=== PATIENT | female | born 1975 | race Caucasian/White ===

== ENCOUNTER 2017-10-15 23:17 | Emergency (ER) | payer MEDICAID ==
[~2017-10-15] VITALS: Ht 167.6 cm; Wt 99.8 kg
[2017-10-15 23:34] VITALS: BP 161/108
[2017-10-15] MEDS ORDERED: Ketorolac 30mg Inj IV ONE (23:45)
--- NOTE | 2017-10-15 23:51 | Emergency Room Report ---
History of Present Illness General Chief Complaint: Headache Source: Patient Present Illness HPI 42-year-old female p/w HARVEY for 1 days. Patient describes HARVEY as gradual in onset, throbbing in nature, localized to back of head, non-radiating, constant, 5 out of 10 in severity. + photophobia, phonophobia. Some nausea and vomiting today Patient has a history of headaches and states this HARVEY feels similar to previous episodes. States that he has been getting worse for the last 3 months. Denies fever, chills, neck pain, blurry vision, motor/sensory weakness. Patient also states that she has a history of hypertension only during , her last was 2 years ago, patient has not seen a doctor since she gave and is not on anti-hypertension medication Allergies: Coded Allergies: CIPROFLOXACIN (Verified Allergy, Mild, Itching, 10/15/17) nausea SULFAMETHOXAZOLE (Verified Allergy, Mild, 10/15/17) nausea TRIMETHOPRIM (Verified Allergy, Mild, 10/15/17) nausea Patient History Past Medical History: see triage record Past Surgical History: none Pertinent Family History: none Last Menstrual Period: 09/25/17 Now: No : 4 Para: 2 Reviewed Nursing Documentation: PMH: Agreed; PSxH: Agreed Nursing Documentation-PMH Past Medical History: No Stated History Review of Systems All Other Systems: negative except mentioned in HPI Physical Exam Vital Signs Date Time Temp Pulse Resp B/P (MAP) Pulse Ox O2 Delivery O2 Flow Rate FiO2 10/15/17 23:19 98.5 99 14 161/108 97 Room Air 98.4 Sp02 EP Interpretation: reviewed, normal General Appearance: alert, GCS 15, non-toxic, mild distress Head: normocephalic, atraumatic Eyes: bilateral eye normal inspection, bilateral eye PERRL, bilateral eye EOMI ENT: normal ENT inspection, normal pharynx, normal voice, moist mucus membranes Neck: normal inspection, full range of motion, supple, no meningismus, no bony tend Respiratory: normal inspection, lungs clear, normal breath sounds, no respiratory distress, no retraction, no wheezing, speaking full sentences, chest symmetrical Cardiovascular #1: normal inspection, regular rate, rhythm, no edema, normal capillary refill Cardiovascular #2: 2+ radial (R), 2+ radial (L) Gastrointestinal: normal inspection, non tender, soft, non-distended, no guarding Musculoskeletal: normal inspection, back normal, normal range of motion, non- tender Neurologic: normal inspection, alert, oriented x3, responsive, stick inserter III-XII nml as tested, motor strength/tone normal, sensory intact, normal gait, speech normal Psychiatric: normal inspection, judgement/insight normal, memory normal Skin: normal inspection, normal color, no rash, warm/dry, well hydrated, normal turgor Medical Decision Making Diagnostic Impression: Primary Impression: Headache Additional Impression: High blood pressure ER Course 42-year-old female with headache DDX: Hypertensive urgency versus Primary HARVEY such as migraine, tension HARVEY, cluster. vs. dehydration Other serious diagnoses on differential such as intracranial bleed/sah, meningitis/encephalitis, tumor, however patients H&P is more consistent with benign etiology at this time. There are no neurological signs/symptoms/findings on physical exam and patient appears nontoxic. Plan: Pain control with Toradol, IV fluids, Zofran ER course: Patient feels much better with meds. Patient continues to appear nontoxic, aox3, no neurologic symptoms. Disposition: Patient will be discharged to home. Patient instructed to follow up with primary care doctor within 5 days. Told that she also needs to follow up with her primary care doctor to be treated for her high blood pressure. Patient also instructed to follow up with a neurologist within 1 week. Strict return precautions discussed with patient such as severe/worsening headache, nausea, vomiting, fever chills, neck pain. Patient verbalized understanding. Please note that this Emergency Department Report was dictated using [employer] turning lathe tender technology software, occasionally this can lead to erroneous entry secondary to interpretation by the dictation equipment. EKG Diagnostic Results EP Interpretation: Yes Rate: normal Rhythm: NSR ST Segments: No acute changes ASA given to patient: No Laboratory Tests Test 10/16/17 00:10 White Blood Count 6.6 K/UL (4.8-10.8) Red Blood Count 4.69 M/UL (4.20-5.40) Hemoglobin 11.0 G/DL (12.0-16.0) L Hematocrit 33.8 % (37.0-47.0) L Mean Corpuscular Volume 72 FL (80-99) L Mean Corpuscular Hemoglobin 23.4 PG (27.0-31.0) L Mean Corpuscular Hemoglobin Concent 32.5 G/DL (32.0-36.0) Red Cell Distribution Width 13.5 % (11.6-14.8) Platelet Count 204 K/UL (150-450) Mean Platelet Volume 7.3 FL (6.5-10.1) Neutrophils (%) (Auto) 53.0 % (45.0-75.0) Lymphocytes (%) (Auto) 33.4 % (20.0-45.0) Monocytes (%) (Auto) 6.9 % (1.0-10.0) Eosinophils (%) (Auto) 5.2 % (0.0-3.0) H Basophils (%) (Auto) 1.5 % (0.0-2.0) Urine Color Yellow Urine Appearance Clear Urine pH 5 (4.5-8.0) Urine Specific [place] 1.030 (1.005-1.035) Urine Protein 1+ (NEGATIVE) H Urine Glucose (UA) Negative (NEGATIVE) Urine Ketones 1+ (NEGATIVE) H Urine Occult Blood 1+ (NEGATIVE) H Urine Nitrite Negative (NEGATIVE) Urine Bilirubin Negative (NEGATIVE) Urine Urobilinogen Normal MG/DL (0.0-1.0) Urine Leukocyte Esterase 1+ (NEGATIVE) H Urine RBC 2-4 /HPF (0 - 2) H Urine WBC 5-10 /HPF (0 - 2) H Urine Squamous Epithelial Cells Many /LPF (NONE/OCC) H Urine Calcium Oxalate Crystals Many /LPF (NONE) Urine Bacteria Moderate /HPF (NONE) H Urine HCG, Qualitative Negative (NEGATIVE) Sodium Level 139 MMOL/L (136-145) Potassium Level 4.0 MMOL/L (3.5-5.1) Chloride Level 104 MMOL/L (98-107) Carbon Dioxide Level 26 MMOL/L (21-32) Anion Gap 9 mmol/L (5-15) Blood Urea Nitrogen 22 mg/dL (7-18) H Creatinine 0.9 MG/DL (0.55-1.30) Estimate Glomerular Filtration Rate > 60 mL/min (>60) Glucose Level 125 MG/DL (74-106) H Calcium Level 8.5 MG/DL (8.5-10.1) Total Bilirubin 0.4 MG/DL (0.2-1.0) Aspartate Amino Transferase (AST) 25 U/L (15-37) Alanine Aminotransferase (ALT) 29 U/L (12-78) Alkaline Phosphatase 67 U/L (46-116) Total Protein 7.2 G/DL (6.4-8.2) Albumin 3.8 G/DL (3.4-5.0) Globulin 3.4 g/dL Albumin/Globulin Ratio 1.1 (1.0-2.7) Last Vital Signs Date Time Temp Pulse Resp B/P (MAP) Pulse Ox O2 Delivery O2 Flow Rate FiO2 10/15/17 23:34 98.4 14 161/108 97 Room Air 98.4 10/15/17 23:19 99 Disposition: HOME, SELF-CARE Condition: Improved Scripts No Active Prescriptions or Reported Meds Luci Torres M.D. Oct 15, 2017 23:51
[2017-10-16 00:14] LABS: BASOPHILS % (AUTO) 1.5 % (0.0-2.0); EOSINOPHILS % (AUTO) 5.2 % (0.0-3.0); HEMATOCRIT 33.8 % (37.0-47.0); LYMPHOCYTES % (AUTO) 33.4 % (20.0-45.0); MEAN CORPUSCULAR VOLUME 72 FL (80-99); MONOCYTES % (AUTO) 6.9 % (1.0-10.0); PLATELET COUNT 204 K/UL (150-450); RED BLOOD COUNT 4.69 M/UL (4.20-5.40); RED CELL DISTRIBUTION WIDTH 13.5 % (11.6-14.8); WHITE BLOOD COUNT 6.6 K/UL (4.8-10.8)
[2017-10-16 00:20] LABS: APPEARANCE,URINE CLEAR; BILIRUBIN, URINE NEGATIVE (NEGATIVE); GLUCOSE, URINE (UA) NEGATIVE (NEGATIVE); KETONES,URINE 1+ (NEGATIVE); LEUKOCYTE ESTERASE ,URINE 1+ (NEGATIVE); NITRITE,URINE NEGATIVE (NEGATIVE); PH,URINE 5 (4.5-8.0); PROTEIN,URINE 1+ (NEGATIVE); UROBILINOGEN,URINE NORMAL MG/DL (0.0-1.0)
[2017-10-16 00:27] LABS: ANION GAP 9 mmol/L (5-15); BLOOD UREA NITROGEN 22 mg/dL (7-18); CALCIUM 8.5 MG/DL (8.5-10.1); CARBON DIOXIDE 26 MMOL/L (21-32); CHLORIDE 104 MMOL/L (98-107); CREATININE 0.9 MG/DL (0.55-1.30); SODIUM 139 MMOL/L (136-145)
[2017-10-16 00:28] LABS: COLOR,URINE YELLOW
[2017-10-16 00:31] LABS: ALANINE AMINOTRANSFERASE 29 U/L (12-78); ALBUMIN 3.8 G/DL (3.4-5.0); ALBUMIN/GLOBULIN RATIO 1.1 (1.0-2.7); ALKALINE PHOSPHATASE 67 U/L (46-116); ASPARTATE AMINO TRANSFERASE 25 U/L (15-37); BILIRUBIN,TOTAL 0.4 MG/DL (0.2-1.0)
[2017-10-16 03:21] VITALS: BP 148/91
[2017-10-16 03:23] VITALS: BP 148/91
--- NOTE | 2017-10-17 18:13 | Cardiology Report ---
APPROVED REPORT EKG Measurement Heart [id number] [id number] Normal sinus rhythm Possible Left atrial enlargement Abnormal ECG
== END 2017-10-16 03:24 | disposition home or self-care (01) ==
LOC: EMR 23:52
DX: R51 Headache (principal); R03.0 Elevated blood-pressure reading, without diagnosis of hypertension; Z88.2 Allergy status to sulfonamides; Z88.1 Allergy status to other antibiotic agents
CPT/HCPCS: 36415; 80053; 81003; 81025; 85025; 87086; 93005; 96374; 96375; 99284; J1885; J2405

== ENCOUNTER 2018-04-18 09:26 | Emergency (ER) | payer MEDICAID ==
[~2018-04-18] VITALS: Ht 167.6 cm; Wt 99.8 kg
[2018-04-18 10:12] LABS: APPEARANCE,URINE SLIGHTLY CLOUDY; BILIRUBIN, URINE NEGATIVE (NEGATIVE); GLUCOSE, URINE (UA) NEGATIVE (NEGATIVE); KETONES,URINE 4+ (NEGATIVE); LEUKOCYTE ESTERASE ,URINE 3+ (NEGATIVE); NITRITE,URINE NEGATIVE (NEGATIVE); PH,URINE 6 (4.5-8.0); PROTEIN,URINE 2+ (NEGATIVE); UROBILINOGEN,URINE 1 MG/DL (0.0-1.0)
[2018-04-18 10:25] LABS: COLOR,URINE YELLOW
[2018-04-18 10:29] LABS: BASOPHILS % (AUTO) 0.8 % (0.0-2.0); EOSINOPHILS % (AUTO) 2.5 % (0.0-3.0); HEMATOCRIT 45.6 % (37.0-47.0); HEMOGLOBIN 14.2 G/DL (12.0-16.0); LYMPHOCYTES % (AUTO) 20.2 % (20.0-45.0); MEAN CORPUSCULAR VOLUME 74 FL (80-99); MONOCYTES % (AUTO) 6.3 % (1.0-10.0); NEUTROPHILS % (AUTO) 70.2 % (45.0-75.0); PLATELET COUNT 195 K/UL (150-450); RED BLOOD COUNT 6.15 M/UL (4.20-5.40)
[2018-04-18 10:37] LABS: ANION GAP 13 mmol/L (5-15); BLOOD UREA NITROGEN 12 mg/dL (7-18); CALCIUM 9.4 MG/DL (8.5-10.1); CARBON DIOXIDE 23 MMOL/L (21-32); CHLORIDE 101 MMOL/L (98-107); CREATININE 0.8 MG/DL (0.55-1.30); POTASSIUM 3.4 MMOL/L (3.5-5.1); SODIUM 137 MMOL/L (136-145)
--- NOTE | 2018-04-18 10:38 | Emergency Room Report ---
History of Present Illness General Chief Complaint: Complications Source: Patient Present Illness HPI 42-year-old female presents ED for evaluation. Patient states she is possibly 6 weeks . Is been having severe nausea for the last few days. Denies abdominal pain. Denies dysuria. Denies any spotting. States that her blood pressure has also been high. BP in triage 163/123. Denies dizziness or headache. States that she was prescribed labetalol prior to but states it is not helping. States that with previous labetalol did control her blood pressure. No history of preeclampsia or eclampsia. No alcohol or drug use. No other aggravating relieving factors. Denies any other associated symptoms Allergies: Coded Allergies: CIPROFLOXACIN (Verified Allergy, Mild, Itching, 10/15/17) nausea SULFAMETHOXAZOLE (Verified Allergy, Mild, 10/15/17) nausea TRIMETHOPRIM (Verified Allergy, Mild, 10/15/17) nausea Patient History Past Medical History: HTN Past Surgical History: none Pertinent Family History: none Social History: Denies: smoking, alcohol use, drug use Last Menstrual Period: 02/23/2018 Now: Yes - 6weeks : 5 Para: 3 Immunizations: UTD Reviewed Nursing Documentation: PMH: Agreed; PSxH: Agreed Nursing Documentation-PMH Hx Hypertension: Yes Review of Systems All Other Systems: negative except mentioned in HPI Physical Exam Vital Signs Date Time Temp Pulse Resp B/P (MAP) Pulse Ox O2 Delivery O2 Flow Rate FiO2 04/18/18 09:41 98.0 86 16 162/123 99 Room Air 98.1 Sp02 EP Interpretation: reviewed, normal General Appearance: no apparent distress, alert, GCS 15, non-toxic Head: normocephalic, atraumatic Eyes: bilateral eye normal inspection, bilateral eye PERRL ENT: hearing grossly normal, normal pharynx, no angioedema, normal voice Neck: full range of motion, supple/symm/no masses Respiratory: chest non-tender, lungs clear, normal breath sounds, speaking full sentences Cardiovascular #1: regular rate, rhythm, no edema Cardiovascular #2: 2+ carotid (R), 2+ carotid (L), 2+ radial (R), 2+ radial (L) , 2+ dorsalis pedis (R), 2+ dorsalis pedis (L) Gastrointestinal: normal bowel sounds, non tender, soft, non-distended, no guarding, no rebound Rectal: deferred Genitourinary: normal inspection, no CVA tenderness Musculoskeletal: back normal, gait/station normal, normal range of motion, non- tender Neurologic: alert, oriented x3, responsive, motor strength/tone normal, sensory intact, speech normal Psychiatric: judgement/insight normal, memory normal, mood/affect normal, no suicidal/homicidal ideation Reflexes: 3+ bicep (R), 3+ bicep (L), 3+ tricep (R), 3+ tricep (L), 3+ knee (R) , 3+ knee (L) Skin: normal color, no rash, warm/dry, well hydrated Lymphatic: no adenopathy Medical Decision Making Diagnostic Impression: Primary Impression: High blood pressure Qualified Codes: I10 - Essential (primary) hypertension Additional Impressions: UTI (urinary tract infection) Qualified Codes: N39.0 - Urinary tract infection, site not specified Vomiting during ER Course Hospital Course 42-year-old female presents ED with vomiting. Blood pressure high. 6 weeks Differential diagnoses include: UTI, hyperemesis gravidum, preeclampsia Clinical course Patient placed on stretcher in ED. After initial history and physical I ordered labs, IV fluids and Zofran Labs-no leukocytosis, electrolytes okay, UA some bacteria, + protein BP initially 163/123. On reassessment BP 148/92. No chest pain or shortness of breath. Likely not preeclampsia. This is chronic hypertension. Labetalol not working for the patient. We will prescribe methyldopa Given dose of methyldopa in ED. Discussed findings with patient. Safe for discharge with close outpatient follow-up. states she has a OBGYN Diagnosis - high blood pressure, UTI, vomitnig during Stable and discharged to home with Rx methyldopa, keflex, zofran. Followup with PMD/SOX ANALYST. Return to ED if symptoms recur or worsen Labs Test 04/18/18 09:50 04/18/18 10:07 Urine Color Yellow Urine Appearance Slightly cloudy Urine pH 6 (4.5-8.0) Urine Specific [place] 1.015 (1.005-1.035) Urine Protein 2+ (NEGATIVE) Urine Glucose (UA) Negative (NEGATIVE) Urine Ketones 4+ (NEGATIVE) Urine Blood 1+ (NEGATIVE) Urine Nitrite Negative (NEGATIVE) Urine Bilirubin Negative (NEGATIVE) Urine Urobilinogen 1 MG/DL (0.0-1.0) Urine Leukocyte Esterase 3+ (NEGATIVE) Urine RBC 0-2 /HPF (0 - 2) Urine WBC 5-10 /HPF (0 - 2) Urine Squamous Epithelial Cells Moderate /LPF (NONE/OCC) Urine Bacteria Few /HPF (NONE) Urine HCG, Qualitative Positive (NEGATIVE) White Blood Count 7.0 K/UL (4.8-10.8) Red Blood Count 6.15 M/UL (4.20-5.40) Hemoglobin 14.2 G/DL (12.0-16.0) Hematocrit 45.6 % (37.0-47.0) Mean Corpuscular Volume 74 FL (80-99) Mean Corpuscular Hemoglobin 23.1 PG (27.0-31.0) Mean Corpuscular Hemoglobin Concent 31.1 G/DL (32.0-36.0) Red Cell Distribution Width 14.0 % (11.6-14.8) Platelet Count 195 K/UL (150-450) Mean Platelet Volume 7.8 FL (6.5-10.1) Neutrophils (%) (Auto) 70.2 % (45.0-75.0) Lymphocytes (%) (Auto) 20.2 % (20.0-45.0) Monocytes (%) (Auto) 6.3 % (1.0-10.0) Eosinophils (%) (Auto) 2.5 % (0.0-3.0) Basophils (%) (Auto) 0.8 % (0.0-2.0) Sodium Level 137 MMOL/L (136-145) Potassium Level 3.4 MMOL/L (3.5-5.1) Chloride Level 101 MMOL/L (98-107) Carbon Dioxide Level 23 MMOL/L (21-32) Anion Gap 13 mmol/L (5-15) Blood Urea Nitrogen 12 mg/dL (7-18) Creatinine 0.8 MG/DL (0.55-1.30) Estimat Glomerular Filtration Rate > 60 mL/min (>60) Glucose Level 113 MG/DL (74-106) Calcium Level 9.4 MG/DL (8.5-10.1) Total Bilirubin 0.9 MG/DL (0.2-1.0) Aspartate Amino Transf (AST/SGOT) 16 U/L (15-37) Alanine Aminotransferase (ALT/SGPT) 28 U/L (12-78) Alkaline Phosphatase 69 U/L (46-116) Total Protein 8.7 G/DL (6.4-8.2) Albumin 4.4 G/DL (3.4-5.0) Globulin 4.3 g/dL Albumin/Globulin Ratio 1.0 (1.0-2.7) Lipase 113 U/L (73-393) Human Chorionic Gonadotropin, Quant 79863 mIU/mL (1-6) Last Vital Signs Date Time Temp Pulse Resp B/P (MAP) Pulse Ox O2 Delivery O2 Flow Rate FiO2 04/18/18 09:41 98.0 86 16 162/123 99 Room Air 98.1 Status: improved Disposition: HOME, SELF-CARE Condition: Stable Scripts Ondansetron Odt* (ZOFRAN ODT*) 4 Mg Tab.rapdis 4 MG BC EVERY 6 HOURS PRN for Nausea & Vomiting, #20 TAB 0 Refills Prov: King Martinez MD 04/18/18 Cephalexin* (KEFLEX*) 500 Mg Capsule 500 MG ORAL EVERY 6 HOURS for 7 Days, CAP Prov: King Martinez MD 04/18/18 Methyldopa* (METHYLDOPA*) 500 Mg Tablet 500 MG ORAL THREE TIMES A DAY for 10 Days, TAB 0 Refills Prov: King Martinez MD 04/18/18 Referrals: Mike WALKER,REFERRING (PCP) King Martinez MD Apr 18, 2018 10:38
[2018-04-18 10:49] LABS: ALANINE AMINOTRANSFERASE 28 U/L (12-78); ALBUMIN 4.4 G/DL (3.4-5.0); ALKALINE PHOSPHATASE 69 U/L (46-116); ASPARTATE AMINO TRANSFERASE 16 U/L (15-37); BILIRUBIN,TOTAL 0.9 MG/DL (0.2-1.0)
[2018-04-18] MEDS ORDERED: METHYLDOPA500 MG ORAL (11:10)
[2018-04-18] MEDS ORDERED: ONDANSETRON ODT4 MG BC (11:10)
[2018-04-18] MEDS ORDERED: CEPHALEXIN500 MG ORAL (11:10)
[2018-04-18 11:18] VITALS: BP 145/100
== END 2018-04-18 11:21 | disposition home or self-care (01) ==
LOC: EMR 09:49
DX: O23.41 Unspecified infection of urinary tract in pregnancy, first trimester (principal); Z3A.01 Less than 8 weeks gestation of pregnancy; O16.1 Unspecified maternal hypertension, first trimester; Z88.2 Allergy status to sulfonamides; Z88.8 Allergy status to other drugs, medicaments and biological substances
CPT/HCPCS: 36415; 80053; 81003; 81025; 83690; 84702; 85025; 96361; 96374; 99284; J2405

== ENCOUNTER 2018-04-25 07:48 | Emergency (ER) | payer MEDICAID ==
[~2018-04-25] VITALS: Ht 167.6 cm; Wt 95.3 kg
[~2018-04-25 07:48] MED LIST: CEPHALEXIN500 MG ORAL; METHYLDOPA500 MG ORAL; ONDANSETRON ODT4 MG BC
--- NOTE | 2018-04-25 08:42 | Emergency Room Report ---
History of Present Illness General Chief Complaint: Complications Source: Patient Present Illness CRISTO Correia is a very pleasant 42-year-old 012 who is currently 7 weeks . She attempted to have the terminated at [facility] 3 weeks ago. However due to severely high blood pressure she was unable to have the elective procedure. She has been on methyldopa prescribed ny my colleague on previous ED encounter. She's been unable to tolerate the methyldopa but due to severe nausea or vomiting. She politely requests IV hydration. She stated that labetalol has not helped in the past. She's had hypertension with previous . With the exception of nausea vomiting she is otherwise symptom-free. She denies headache or blurry vision. She does have severe thirst. She also informed me that the pharmacist stated that methyldopa has been discontinued. She was only able to fill the prescription for 4 day supply. Allergies: Coded Allergies: CIPROFLOXACIN (Verified Allergy, Mild, Itching, 10/15/17) nausea SULFAMETHOXAZOLE (Verified Allergy, Mild, 10/15/17) nausea TRIMETHOPRIM (Verified Allergy, Mild, 10/15/17) nausea Patient History Past Medical History: HTN Social History: Denies: drug use Now: Yes - 7 weeks Reviewed Nursing Documentation: PMH: Agreed; PSxH: Agreed Nursing Documentation-PMH Past Medical History: No History, Except For Hx Hypertension: Yes Review of Systems Constitutional: Denies: fever, malaise Cardiovascular: Denies: chest pain Gastrointestinal: Denies: abdominal pain Musculoskeletal: Denies: back pain All Other Systems: negative except mentioned in HPI Physical Exam Vital Signs Date Time Temp Pulse Resp B/P (MAP) Pulse Ox O2 Delivery O2 Flow Rate FiO2 04/25/18 08:13 98.6 73 17 180/110 98 Room Air 98.6 Sp02 EP Interpretation: reviewed, normal General Appearance: no apparent distress, alert, GCS 15, non-toxic Head: normocephalic, atraumatic Eyes: bilateral eye normal inspection ENT: hearing grossly normal, normal pharynx, no angioedema, normal voice Neck: full range of motion, supple/symm/no masses Respiratory: chest non-tender, lungs clear, normal breath sounds, no rhonchi, no respiratory distress, no retraction, no accessory muscle use, speaking full sentences Cardiovascular #1: regular rate, rhythm, no edema, no gallop, no JVD, no murmur , no rub Gastrointestinal: normal bowel sounds, non tender, soft, no mass, no organomegaly, no peritonitis, no bruit, non-distended, no guarding, no rebound Genitourinary: normal inspection Musculoskeletal: back normal, gait/station normal, normal range of motion, non- tender Neurologic: alert, oriented x3, responsive, motor strength/tone normal, sensory intact, speech normal Psychiatric: judgement/insight normal, memory normal, mood/affect normal, no suicidal/homicidal ideation Skin: normal color, no rash, warm/dry, well hydrated Lymphatic: no adenopathy Medical Decision Making Diagnostic Impression: Primary Impression: High blood pressure Additional Impression: Vomiting during ER Course Bren presents with blood pressure elevation and nausea during first trimester. With known hx of PIH, will dc with higher dosing of Labetalol. Rx: promethazine, zofran, and labetalol She received IV fluid therapy. Further diagnostics were not indicated. She has asymptomatic hypertension without end organ damage according to clinical exam. She did have elevated blood pressure which was addressed with antihypertensive medication here in the ED. No vomiting occurred during ED stay. She was able to tolerate PO med in ED. Last Vital Signs Date Time Temp Pulse Resp B/P (MAP) Pulse Ox O2 Delivery O2 Flow Rate FiO2 04/25/18 08:13 98.6 73 17 180/110 98 Room Air 98.6 Status: improved Disposition: HOME, SELF-CARE Condition: Stable Scripts Ondansetron (Zofran) 4 Mg Tablet 4 MG ORAL Q8H PRN for Nausea & Vomiting, #20 TAB 0 Refills Prov: Fina Patel MD 04/25/18 Promethazine Hcl* (PHENERGAN*) 25 Mg Tablet 25 MG ORAL Q6H PRN for Nausea & Vomiting, #15 TAB 0 Refills Prov: Fina Patel MD 04/25/18 Labetalol HCl (Labetalol HCl) 100 Mg Tablet 100 MG ORAL EVERY 12 HOURS for 30 Days, #60 TAB Prov: Fina Patel MD 04/25/18 Ref[facility]: [facility],REFERRING (PCP) Fina Patel MD Apr 25, 2018 08:42
[2018-04-25] MEDS ORDERED: NORMODYNE100 MG ORAL (08:48)
[2018-04-25] MEDS ORDERED: PHENERGAN25 M1 ORAL (08:49)
[2018-04-25] MEDS ORDERED: ZOFRAN4 MG ORAL (08:50)
[2018-04-25 09:24] VITALS: BP 154/100
[2018-04-25 09:42] VITALS: BP 154/100
== END 2018-04-25 09:42 | disposition home or self-care (01) ==
LOC: EMR 08:30
DX: O10.911 Unspecified pre-existing hypertension complicating pregnancy, first trimester (principal); O21.9 Vomiting of pregnancy, unspecified; O09.521 Supervision of elderly multigravida, first trimester; Z3A.01 Less than 8 weeks gestation of pregnancy
CPT/HCPCS: 96361; 96374; 99284; J2405

== ENCOUNTER 2019-04-20 19:00 | Emergency (ER) | payer MEDICAID ==
[~2019-04-20] VITALS: Ht 167.6 cm; Wt 104.3 kg
[~2019-04-20 19:00] MED LIST changes: +NORMODYNE100 MG ORAL; +PHENERGAN25 M1 ORAL; +ZOFRAN4 MG ORAL
[2019-04-20] MEDS ORDERED: NKM (19:10)
[2019-04-20 19:21] VITALS: BP 197/117
--- NOTE | 2019-04-20 19:24 | NUR ---
ED Nurse Note: PATIENT WALKED IN TO ED FROM C/O RIGHT FOOT PAIN X 3WEEKS. STATES THAT HAS BURNING PAIN WHEN WALKING. BP IN TRIAGE 197/117. PT STATES HX OF HTN AND NONCOMPLIANCE WITH MEDICATION. AAO X4, VSS AT THIS TIME, SKIN IS DRY WARM TO TOUCH.
[2019-04-20] MEDS ORDERED: NORVASC5 MG ORAL (19:52)
[2019-04-20] MEDS ORDERED: IBUPROFEN600 MG ORAL (19:52)
[2019-04-20 20:03] VITALS: BP 197/117
--- NOTE | 2019-04-20 20:04 | NUR ---
ED Nurse Note: Pt cleared by health care Provider for discharge. DC instructions/prescription was given and explained to pt and verbalized understanding of teachings. All medical deviecs such as ID band removed. Pt is AAO x4, ambulatory and left with all personal belongings.
--- NOTE | 2019-04-20 21:13 | Emergency Room Report ---
History of Present Illness General Chief Complaint: Pain Source: Patient Present Illness HPI 43-year-old female presents ED for evaluation. Complaining of right heel pain. Started 3 weeks ago. Denies any fall or injury. Pain is dull, 7 out of 10, nonradiating. Worse with walking. States that for her job she started wearing a flat dress shoe. Patient states that her triage BP is high. Patient states that she has history of hypertension. Used to take methyldopa and labetalol but states neither had worked well for her. Is currently not taking any medication. Denies alcohol or drug use. Denies chest pain or shortness of breath. Denies headache. No other aggravating relieving factors. Denies any other associated symptoms Allergies: Coded Allergies: CIPROFLOXACIN (Verified Allergy, Mild, Itching, 10/15/17) nausea SULFAMETHOXAZOLE (Verified Allergy, Mild, 10/15/17) nausea TRIMETHOPRIM (Verified Allergy, Mild, 10/15/17) nausea Patient History Past Medical History: HTN Past Surgical History: none Pertinent Family History: none Social History: Denies: smoking, alcohol use, drug use Last Menstrual Period: 04/14/19 Now: No Immunizations: UTD Reviewed Nursing Documentation: PMH: Agreed; PSxH: Agreed Nursing Documentation-PMH Past Medical History: No History, Except For Hx Hypertension: Yes Review of Systems All Other Systems: negative except mentioned in HPI Physical Exam Vital Signs Date Time Temp Pulse Resp B/P (MAP) Pulse Ox O2 Delivery O2 Flow Rate FiO2 04/20/19 19:07 97.9 81 16 197/117 (143) 100 Room Air Sp02 EP Interpretation: reviewed, normal General Appearance: no apparent distress, alert, GCS 15, non-toxic Head: normocephalic, atraumatic Eyes: bilateral eye normal inspection, bilateral eye PERRL ENT: hearing grossly normal, normal pharynx, no angioedema, normal voice Neck: full range of motion, supple/symm/no masses Respiratory: chest non-tender, lungs clear, normal breath sounds, speaking full sentences Cardiovascular #1: regular rate, rhythm, no edema Cardiovascular #2: 2+ carotid (R), 2+ carotid (L), 2+ radial (R), 2+ radial (L) , 2+ dorsalis pedis (R), 2+ dorsalis pedis (L) Gastrointestinal: normal bowel sounds, non tender, soft, non-distended, no guarding, no rebound Rectal: deferred Genitourinary: normal inspection, no CVA tenderness Musculoskeletal: back normal, gait/station normal, normal range of motion, tender - R heel Neurologic: alert, oriented x3, responsive, motor strength/tone normal, sensory intact, speech normal Psychiatric: judgement/insight normal, memory normal, mood/affect normal, no suicidal/homicidal ideation Reflexes: 3+ bicep (R), 3+ bicep (L), 3+ tricep (R), 3+ tricep (L), 3+ knee (R) , 3+ knee (L) Lymphatic: no adenopathy Medical Decision Making Diagnostic Impression: Primary Impression: Heel pain Qualified Codes: M79.671 - Pain in right foot Additional Impression: High blood pressure Qualified Codes: I10 - Essential (primary) hypertension ER Course Hospital Course 43-year-old female presents with right heel pain. No trauma. BP high in triage Differential diagnoses include: Fracture, dislocation, sprain, contusion Clinical course Patient placed on stretcher. After initial history and physical, I ordered xrays of R foot Xrays prelim read shows no acute fracture/dislocation. I discussed findings with the patient. Clinically consideration for plantar fasciitis. Recommend ice, modified activity. Provide Ortho referrals Patient denies chest pain, headache, shortness of breath. Asymptomatic hypertension. No indication for work-up at this time. Will discharge to home with Norvasc low-dose. Patient states she will follow-up with her PMD for continued care of her blood pressure Diagnosis - heel pain, high blood pressure Stable and discharged to home with prescription for Motrin, norvasc. apply ice. weight bear as tolerated. Followup with PMD. Return to ED if symptoms recur or worsen Other X-Ray Diagnostic Results Other X-Ray Diagnostic Results : X-Ray ordered: R foot # of Views/Limited Vs Complete: 3 View Indication: Pain EP Interpretation: Yes Interpretation: no dislocation, no soft tissue swelling, no fractures Impression: No acute disease Electronically Signed by: Electronically signed by King Martinez MD Last Vital Signs Date Time Temp Pulse Resp B/P (MAP) Pulse Ox O2 Delivery O2 Flow Rate FiO2 04/20/19 20:03 97.9 16 197/117 100 Room Air 04/20/19 19:07 81 Status: improved Disposition: HOME, SELF-CARE Condition: Stable Scripts Ibuprofen* (MOTRIN*) 600 Mg Tablet 600 MG ORAL Q8H PRN for For Pain, #30 TAB 0 Refills Prov: King Martinez MD 04/20/19 Amlodipine Besylate (Norvasc) 5 Mg Tablet 5 MG ORAL DAILY for 14 Days, TAB Prov: King Martinez MD 04/20/19 Referrals: NON PHYSICIAN (PCP) Mike Ortiz [facility]. [facility] Open 24 hour /7 days a week by Appointment Only [address] [facility] [id number] Patient Instructions: Plantar Fasciitis With Rehab-[facility] King Martinez MD Apr 20, 2019 21:13
--- NOTE | 2019-04-21 11:22 | Diagnostic Imaging Report ---
Indication: Foot Pain Comparison: None Findings: 3 views of the right foot were obtained. No acute fractures, malalignment, erosions or periostitis are identified. Impression: No acute findings.
== END 2019-04-20 20:04 | disposition home or self-care (01) ==
LOC: EMR 19:30
DX: M79.671 Pain in right foot (principal); I10 Essential (primary) hypertension; Z88.1 Allergy status to other antibiotic agents; Z88.2 Allergy status to sulfonamides
CPT/HCPCS: 73630; Z7502; 99283

== ENCOUNTER 2020-05-02 12:20 | Emergency (ER) | payer MEDICAID ==
[~2020-05-02] VITALS: Ht 167.6 cm; Wt 97.5 kg
[~2020-05-02 12:20] MED LIST changes: +IBUPROFEN600 MG ORAL; +NKM; +NORVASC5 MG ORAL
--- NOTE | 2020-05-02 12:37 | NUR ---
ED Nurse Note: Patient from home and walked in due to left lower abd pain that radiates to her back with N/V started around 0300am this morning. Patient is on her 3rd menstrual day and states that her perod is heavy. pt's last LPM was 2 weeks ago. AAO x4 and ambulatory.
[2020-05-02] MEDS ORDERED: Morphine Sulfate 4mg/ml Inj (IV USE ONLY) IVP ONE (13:00)
--- NOTE | 2020-05-02 13:07 | NUR ---
ED Nurse Note: Collected blood and urine then sent. US staff Jojo at the bed side.
[2020-05-02 13:19] LABS: HEMATOCRIT 40.7 % (37.0-47.0); HEMOGLOBIN 13.7 G/DL (12.0-16.0); MEAN CORPUSCULAR VOLUME 73 FL (80-99); PLATELET COUNT 158 K/UL (150-450); RED BLOOD COUNT 5.61 M/UL (4.20-5.40); RED CELL DISTRIBUTION WIDTH 14.1 % (11.6-14.8); WHITE BLOOD COUNT 10.7 K/UL (4.8-10.8)
[2020-05-02 13:20] LABS: APPEARANCE,URINE CLOUDY; BILIRUBIN, URINE NEGATIVE (NEGATIVE); GLUCOSE, URINE (UA) NEGATIVE (NEGATIVE); KETONES,URINE 3+ (NEGATIVE); LEUKOCYTE ESTERASE ,URINE 3+ (NEGATIVE); NITRITE,URINE POSITIVE (NEGATIVE); PH,URINE 7 (4.5-8.0); PROTEIN,URINE 3+ (NEGATIVE); UROBILINOGEN,URINE 1 MG/DL (0.0-1.0)
--- NOTE | 2020-05-02 13:22 | Emergency Room Report ---
History of Present Illness General Chief Complaint: Abdominal Pain Source: Patient Present Illness HPI 44 YO female presents to the ED c/o 04/28 in severity acute onset of what she thought was " really bad cramping from her period" She reports pain later began to localize mostly on the left lower quadrant /adnexal area and eventually had radiation towards the left flank. acute onset at 0300 today. SHe reports having tenderness to palpation in the left lower abdomen and flank. Pt. reports some intermittent sharp pain several times yesterday on the left side which was not as intense, and resolved spontaneously on its own. She reports yesterday being related to movement/twisting of her torso. She reports current symptoms to be severe and constant. She reports several episodes of intense nausea associated with her pain. She denies vomiting. Denies constipation or diarrhea. Pt. denies fevers. She reports some chills. She reports being on her period. Pt. denies hx of painful menses. Pt. denies dysuria, hematuria, urinary frequency or urgency. PT. denies . She denies blood in the stool or black tarry stools. She denies trauma or fall. She denies hx of urinary stones. She denies . Allergies: Coded Allergies: CIPROFLOXACIN (Verified Allergy, Mild, Itching, 10/15/17) nausea SULFAMETHOXAZOLE (Verified Allergy, Mild, 10/15/17) nausea TRIMETHOPRIM (Verified Allergy, Mild, 10/15/17) nausea COVID-19 Screening Contact w/high risk pt: No Experienced COVID-19 symptoms?: No COVID-19 Testing performed CEMENT CONVEYOR OPERATOR: No Patient History Past Medical History: see triage record Past Surgical History: none Pertinent Family History: none Last Menstrual Period: 04/29/20 Now: No Reviewed Nursing Documentation: PMH: Agreed; PSxH: Agreed Nursing Documentation-PMH Past Medical History: No History, Except For Hx Hypertension: Yes Review of Systems All Other Systems: negative except mentioned in HPI Physical Exam Vital Signs Date Time Temp Pulse Resp B/P (MAP) Pulse Ox O2 Delivery O2 Flow Rate FiO2 05/02/20 12:25 98.1 127 20 152/99 (116) 95 Room Air Sp02 EP Interpretation: reviewed, normal General Appearance: no apparent distress, alert, GCS 15, non-toxic Head: normocephalic, atraumatic Eyes: bilateral eye normal inspection, bilateral eye PERRL ENT: hearing grossly normal, normal voice Neck: full range of motion Respiratory: lungs clear, normal breath sounds, speaking full sentences Cardiovascular #1: regular rate, rhythm, normal capillary refill Gastrointestinal: normal bowel sounds, soft, no peritonitis, tenderness - Lower left abdominal/ left adnexal ttp. Pain in the left adnexal area with deep palpation in other quadrants. Rectal: deferred Genitourinary: normal inspection, CVA tenderness (L), other Musculoskeletal: back normal - no midline ttp, normal range of motion, gait/station normal, tender - TTP to mild palpation of the ST in the left flank area. Neurologic: alert, motor strength/tone normal, oriented x3, sensory intact, responsive, speech normal Psychiatric: judgement/insight normal Skin: no rash, normal color Medical Decision Making PA Attestation Dr. Case is my supervising Physician whom patient management has been discussed with. Diagnostic Impression: Primary Impression: Pyelonephritis Additional Impression: UTI (urinary tract infection) Qualified Codes: N30.01 - Acute cystitis with hematuria ER Course 44 YO female presents to the ED c/o 04/28 in severity acute onset of what she thought was " really bad cramping from her period" She reports pain later began to localize mostly on the left lower quadrant /adnexal area and eventually had radiation towards the left flank. acute onset at 0300 today. She reports having tenderness to palpation in the left lower abdomen and flank. Pt. reports some intermittent sharp pain several times yesterday on the left side which was not as intense, and resolved spontaneously on its own. She reports yesterday being related to movement/twisting of her torso. She reports current symptoms to be severe and constant. She reports several episodes of intense nausea associated with her pain. She denies vomiting. Denies constipation or diarrhea. Pt. denies fevers. She reports some chills. She reports being on her period. Pt. denies hx of painful menses. Pt. denies dysuria, hematuria, urinary frequency or urgency. PT. denies . She denies blood in the stool or black tarry stools. She denies trauma or fall. She denies hx of urinary stones. She denies . Ddx considered but are not limited to Diverticulitis, acute appendicitis, diarrhea,UC, PUD, GE, pancreatitis, gallstone, kidney stone, pyelonephritis, UTI, obstruction, torsion, TOA, ovarian cyst just to name a few. Vital signs: Tachycardic on arrival which later resolved down to high 90's-104 o n monitor, pt. is afebrile H&PE are most consistent with possible UTI +/- stone. urgent need to r/o torsion due to acute onset of left adnexal pain. ORDERS: -CBC, CMP, lipase: WNL- normal renal function. Mild elevation in LFT's - UA: Nitrite Positive, elevated inflammatory markers and presence of bacteria c/w UTI - Pelvic US: fibroids. Normal flow to the ovaries. ED INTERVENTIONS: -- 1000NS --4mg Morphine for pain -30gm IV toradol -1g Rocephin IV Pt. reports her pain has improved with ED interventions. D/w pt. lab and imaging results and plan for conservative treatment at home. pt. is given strict ED return precautions and signs and symptoms that indicate need for prompt return to the ED have been d/w her. Pt. had a chance to ask any additional questions or clarify any part of her visit, results or treatment plan that was not clear to her. Pt. verbalized her understanding and agreement with Conservative treatment at home with oral antibiotics and flow max with strict ED return precautions. DISCHARGE: At this time pt. is stable for d/c to home. Will provide printed patient care instructions, and any necessary prescriptions. Care plan and follow up instructions have been discussed with the patient prior to discharge. Labs Test 05/02/20 12:48 White Blood Count 10.7 K/UL (4.8-10.8) Red Blood Count 5.61 M/UL (4.20-5.40) Hemoglobin 13.7 G/DL (12.0-16.0) Hematocrit 40.7 % (37.0-47.0) Mean Corpuscular Volume 73 FL (80-99) Mean Corpuscular Hemoglobin 24.5 PG (27.0-31.0) Mean Corpuscular Hemoglobin Concent 33.7 G/DL (32.0-36.0) Red Cell Distribution Width 14.1 % (11.6-14.8) Platelet Count 158 K/UL (150-450) Mean Platelet Volume 7.0 FL (6.5-10.1) Neutrophils (%) (Auto) % (45.0-75.0) Lymphocytes (%) (Auto) % (20.0-45.0) Monocytes (%) (Auto) % (1.0-10.0) Eosinophils (%) (Auto) % (0.0-3.0) Basophils (%) (Auto) % (0.0-2.0) Differential Total Cells Counted 100 Neutrophils % (Manual) 80 % (45-75) Lymphocytes % (Manual) 5 % (20-45) Monocytes % (Manual) 3 % (1-10) Eosinophils % (Manual) 0 % (0-3) Basophils % (Manual) 0 % (0-2) Band Neutrophils 12 % (0-8) Platelet Estimate Adequate Platelet Morphology Normal Microcytosis 2+ Urine Color Brown Urine Appearance Cloudy Urine pH 7 (4.5-8.0) Urine Specific [place] 1.010 (1.005-1.035) Urine Protein 3+ (NEGATIVE) Urine Glucose (UA) Negative (NEGATIVE) Urine Ketones 3+ (NEGATIVE) Urine Blood 5+ (NEGATIVE) Urine Nitrite Positive (NEGATIVE) Urine Bilirubin Negative (NEGATIVE) Urine Urobilinogen 1 MG/DL (0.0-1.0) Urine Leukocyte Esterase 3+ (NEGATIVE) Urine RBC Tntc /HPF (0 - 2) Urine WBC 5-10 /HPF (0 - 2) Urine Squamous Epithelial Cells Few /LPF (NONE/OCC) Urine Bacteria Few /HPF (NONE) Urine HCG, Qualitative Negative (NEGATIVE) Sodium Level 137 MMOL/L (136-145) Potassium Level 3.7 MMOL/L (3.5-5.1) Chloride Level 99 MMOL/L (98-107) Carbon Dioxide Level 20 MMOL/L (21-32) Anion Gap 18 mmol/L (5-15) Blood Urea Nitrogen 16 mg/dL (7-18) Creatinine 1.3 MG/DL (0.55-1.30) Estimat Glomerular Filtration Rate 44.9 mL/min (>60) Glucose Level 129 MG/DL (74-106) Calcium Level 8.8 MG/DL (8.5-10.1) Total Bilirubin 1.1 MG/DL (0.2-1.0) Direct Bilirubin 0.1 MG/DL (0.0-0.3) Aspartate Amino Transf (AST/SGOT) 54 U/L (15-37) Alanine Aminotransferase (ALT/SGPT) 89 U/L (12-78) Alkaline Phosphatase 75 U/L (46-116) Total Protein 7.3 G/DL (6.4-8.2) Albumin 4.5 G/DL (3.4-5.0) Globulin 2.8 g/dL Albumin/Globulin Ratio 1.6 (1.0-2.7) Lipase 79 U/L (73-393) CT/MRI/US Diagnostic Results CT/MRI/US Diagnostic Results : Imaging Test Ordered: Pelvic US Transvaginal Impression " Uterine fibroids, normal blood flow to the ovaries ." --Per official radiology report- Please see report for specific details. Last Vital Signs Date Time Temp Pulse Resp B/P (MAP) Pulse Ox O2 Delivery O2 Flow Rate FiO2 05/02/20 12:35 127 20 Room Air 05/02/20 12:25 98.1 152/99 (116) 95 Status: improved Disposition: HOME, SELF-CARE Condition: Stable Scripts Tamsulosin HCl (Flomax) 0.4 Mg Cap.er.24h 0.4 MG ORAL QHS for 5 Days, #5 CAP Prov: Li Miguel 05/02/20 Hydrocodone Bit/Acetaminophen (HYDROCODON-ACETAMINOPHEN 5-300) 1 Each Tablet 1 EACH PO Q6HR, #15 TAB Prov: Li Miguel 05/02/20 Nitrofurantoin Monohyd/M-Cryst* (MACROBID 100 MG*) 100 Mg Capsule 100 MG ORAL EVERY 12 HOURS for 10 Days, #20 CAP Prov: Li Miguel 05/02/20 Referrals: [facility],REFERRING (PCP) Patient Instructions: Pyelonephritis, Adult Additional Instructions: Take medications as directed. Do not drink alcohol, drive, or operate heavy machinery while taking [place] as this may cause drowsiness. * Drink plenty of water. Avoid caffeine Follow up with a Primary Care Provider in within 3 days, even if your symptoms have resolved. --Please review list of primary care clinics, if you do not already have a primary care provider Return sooner to ED if new symptoms occur, or current symptoms become worse. If you are unable to urinate, you develop fevers that dont respond to tylenol, you experience worsening of pain, or develop vomiting and are unable to tolerate oral medications and fluids. - Please note that this Emergency Department Report was dictated using [employer]artillery specialist technology software, occasionally this can lead to erroneous entry secondary to interpretation by the dictation equipment. Li Miguel May 02, 2020 13:22
[2020-05-02 13:23] LABS: COLOR,URINE BROWN
[2020-05-02 13:36] LABS: CALCIUM 8.8 MG/DL (8.5-10.1); CREATININE 1.3 MG/DL (0.55-1.30); POTASSIUM 3.7 MMOL/L (3.5-5.1)
[2020-05-02 13:44] LABS: ALBUMIN 4.5 G/DL (3.4-5.0); ALBUMIN/GLOBULIN RATIO 1.6 (1.0-2.7); BILIRUBIN,TOTAL 1.1 MG/DL (0.2-1.0)
[2020-05-02 13:47] LABS: BILIRUBIN,DIRECT 0.1 MG/DL (0.0-0.3)
[2020-05-02] MEDS ORDERED: cefTRIAXone 1 GM in NS 55 ML IVPB ONE (14:00)
[2020-05-02 14:10] VITALS: BP 156/89
[2020-05-02] MEDS ORDERED: Ketorolac 30mg Inj IV ONE (14:30)
--- NOTE | 2020-05-02 14:33 | Diagnostic Imaging Report ---
Indication: Pelvic pain, negative test Technique: Transabdominal and transvaginal images of the pelvis. Doppler interrogation of the ovaries Comparison: none Findings: Uterus measures 8.8 cm length by 5.3 cm AP. The endometrium measures 5 mm thick. There is suggestion of small fibroids, largest measuring approximately 2.7 cm in diameter. There are cervical nabothian cysts. The left ovary measures 2.3 cm length. The right ovary could not be visualized on the transvaginal images, appears normal on the transabdominal images measuring 2.3 cm length. The ovaries demonstrate normal flow on Doppler No free cul-de-sac fluid Impression: Multiple small uterine fibroids Otherwise unremarkable
[2020-05-02] MEDS ORDERED: HYDROCODON-ACE1 EA18 PO (14:43)
[2020-05-02] MEDS ORDERED: NITROFURANTOIN100 M2 ORAL (14:43)
[2020-05-02] MEDS ORDERED: FLOMAX0.4 MG ORAL (14:43)
[2020-05-02 15:04] VITALS: BP 145/94
--- NOTE | 2020-05-02 15:04 | NUR ---
ER DISCHARGE NOTE: Patient is cleared to be discharged per PA, pt is aox4, on room air, with stable vital signs. pt was given dc and prescription instructions, pt was able to verbalize understanding, pt id band and iv site removed without complications. pt is able to ambulate with steady gait. pt took all belongings.
== END 2020-05-02 15:04 | disposition home or self-care (01) ==
LOC: EMR 12:45
DX: N12 Tubulo-interstitial nephritis, not specified as acute or chronic (principal); N30.01 Acute cystitis with hematuria; Z88.2 Allergy status to sulfonamides; Z88.8 Allergy status to other drugs, medicaments and biological substances; I10 Essential (primary) hypertension; R00.0 Tachycardia, unspecified; D25.9 Leiomyoma of uterus, unspecified; N88.8 Other specified noninflammatory disorders of cervix uteri
CPT/HCPCS: 36415; 76830; 76856; 80053; 81003; 81025; 82248; 83690; 85007; 85025; 96361; 96365; 96375; J0696; J1885; J2270; J7030; Z7502; 99284

== ENCOUNTER 2020-05-04 09:26 | Inpatient (IN) | payer MEDICAID ==
[~2020-05-04] VITALS: Ht 167.6 cm; Wt 111.7 kg
[~2020-05-04 09:26] MED LIST changes: +FLOMAX0.4 MG ORAL; +HYDROCODON-ACE1 EA18 PO; +NITROFURANTOIN100 M2 ORAL
[2020-05-04 09:55] VITALS: BP 147/92
[2020-05-04] MEDS ORDERED: cefTRIAXone 1 GM in NS 55 ML IVPB ONE (10:00)
[2020-05-04 10:08] LABS: APPEARANCE,URINE SLIGHTLY CLOUDY; BASOPHILS % (AUTO) 2.5 % (0.0-2.0); BILIRUBIN, URINE NEGATIVE (NEGATIVE); GLUCOSE, URINE (UA) NEGATIVE (NEGATIVE); HEMATOCRIT 37.2 % (37.0-47.0); HEMOGLOBIN 12.3 G/DL (12.0-16.0); KETONES,URINE 4+ (NEGATIVE); LEUKOCYTE ESTERASE ,URINE 2+ (NEGATIVE); MEAN CORPUSCULAR VOLUME 73 FL (80-99); NEUTROPHILS % (AUTO) 82.4 % (45.0-75.0); NITRITE,URINE NEGATIVE (NEGATIVE); PH,URINE 5 (4.5-8.0); PLATELET COUNT 109 K/UL (150-450); PROTEIN,URINE 3+ (NEGATIVE); RED CELL DISTRIBUTION WIDTH 14.5 % (11.6-14.8); UROBILINOGEN,URINE NORMAL MG/DL (0.0-1.0); WHITE BLOOD COUNT 8.8 K/UL (4.8-10.8)
--- NOTE | 2020-05-04 10:17 | Emergency Room Report ---
History of Present Illness General Chief Complaint: Abdominal Pain Source: Patient Present Illness HPI 44-year-old female presents with dysuria x3 days, now with left flank pain fever/chills, no aggravating relieving factors severity is moderate, constant patient presents for evaluation and treatment Allergies: Coded Allergies: CIPROFLOXACIN (Verified Allergy, Mild, Itching, 10/15/17) nausea SULFAMETHOXAZOLE (Verified Allergy, Mild, 10/15/17) nausea TRIMETHOPRIM (Verified Allergy, Mild, 10/15/17) nausea COVID-19 Screening Contact w/high risk pt: No Experienced COVID-19 symptoms?: No COVID-19 Testing performed HAIR BALER: No Patient History Past Medical History: see triage record Last Menstrual Period: 04/27/20 Reviewed Nursing Documentation: PMH: Agreed; PSxH: Agreed Nursing Documentation-PMH Past Medical History: No History, Except For Hx Hypertension: Yes Review of Systems All Other Systems: negative except mentioned in HPI Physical Exam Vital Signs Date Time Temp Pulse Resp B/P (MAP) Pulse Ox O2 Delivery O2 Flow Rate FiO2 05/04/20 09:35 97.9 120 17 167/109 (128) 97 Room Air Sp02 EP Interpretation: reviewed, normal General Appearance: well appearing, no apparent distress, alert Head: normocephalic, atraumatic Eyes: bilateral eye PERRL, bilateral eye EOMI ENT: uvula midline, moist mucus membranes Neck: supple, thyroid normal, supple/symm/no masses Respiratory: lungs clear, no respiratory distress, no retraction, no accessory muscle use Cardiovascular #1: normal peripheral pulses, no edema, no gallop, no murmur, tachycardia Gastrointestinal: soft, no guarding, no rebound, tenderness - Suprapubically Genitourinary: CVA tenderness (L) Musculoskeletal: normal inspection Neurologic: alert, oriented x3 Psychiatric: mood/affect normal Skin: no rash, warm/dry Medical Decision Making Diagnostic Impression: Primary Impression: Pyelonephritis ER Course 44-year-old female presents with left flank pain, dysuria, fever/chills concerning for pyelonephritis, differential also includes appendicitis, UTI will start patient on ceftriaxone, 1 L of NS for resuscitation patient given Zofran for nausea patient to be admitted to hospital Patient admitted to Dr. Carrion Laboratory Tests Test 05/04/20 09:54 White Blood Count 8.8 K/UL (4.8-10.8) Red Blood Count 5.10 M/UL (4.20-5.40) Hemoglobin 12.3 G/DL (12.0-16.0) Hematocrit 37.2 % (37.0-47.0) Mean Corpuscular Volume 73 FL (80-99) L Mean Corpuscular Hemoglobin 24.1 PG (27.0-31.0) L Mean Corpuscular Hemoglobin Concent 33.1 G/DL (32.0-36.0) Red Cell Distribution Width 14.5 % (11.6-14.8) Platelet Count 109 K/UL (150-450) L Mean Platelet Volume 7.4 FL (6.5-10.1) Neutrophils (%) (Auto) 82.4 % (45.0-75.0) H Lymphocytes (%) (Auto) 6.0 % (20.0-45.0) L Monocytes (%) (Auto) 8.0 % (1.0-10.0) Eosinophils (%) (Auto) 1.0 % (0.0-3.0) Basophils (%) (Auto) 2.5 % (0.0-2.0) H Urine Color Yellow Urine Appearance Slightly cloudy Urine pH 5 (4.5-8.0) Urine Specific [place] 1.015 (1.005-1.035) Urine Protein 3+ (NEGATIVE) H Urine Glucose (UA) Negative (NEGATIVE) Urine Ketones 4+ (NEGATIVE) H Urine Blood 5+ (NEGATIVE) H Urine Nitrite Negative (NEGATIVE) Urine Bilirubin Negative (NEGATIVE) Urine Urobilinogen Normal MG/DL (0.0-1.0) Urine Leukocyte Esterase 2+ (NEGATIVE) H Urine RBC 30-40 /HPF (0 - 2) H Urine WBC 5-10 /HPF (0 - 2) H Urine Squamous Epithelial Cells Few /LPF (NONE/OCC) Urine Bacteria Few /HPF (NONE) Urine HCG, Qualitative Negative (NEGATIVE) Sodium Level 132 MMOL/L (136-145) L Potassium Level 3.2 MMOL/L (3.5-5.1) L Chloride Level 97 MMOL/L (98-107) L Carbon Dioxide Level 25 MMOL/L (21-32) Anion Gap 10 mmol/L (5-15) Blood Urea Nitrogen 23 mg/dL (7-18) H Creatinine 1.5 MG/DL (0.55-1.30) H Estimated Glomerular Filtration Rate 38.1 mL/min (>60) Glucose Level 142 MG/DL (74-106) H Calcium Level 8.8 MG/DL (8.5-10.1) Total Bilirubin 1.0 MG/DL (0.2-1.0) Aspartate Amino Transferase (AST) 22 U/L (15-37) Alanine Aminotransferase (ALT) 43 U/L (12-78) Alkaline Phosphatase 81 U/L (46-116) Total Protein 6.9 G/DL (6.4-8.2) Albumin 3.3 G/DL (3.4-5.0) L Globulin 3.6 g/dL Albumin/Globulin Ratio 0.9 (1.0-2.7) L Lipase 52 U/L (73-393) L Human Chorionic Gonadotropin, Quant 3 mIU/mL (1-6) Microbiology Date/Time Source Procedure Growth Status 05/04/20 10:18 Nasopharynx SARS-CoV-2 RdRp Gene Assay - Final Complete Rhythm Strip Diag. Results Rhythm Strip Time: 10:17 EP Interpretation: yes Rate: 116 Rhythm: no PVC's, no ectopy, other - Sinus tachycardia CT/MRI/US Diagnostic Results CT/MRI/US Diagnostic Results : Impression Comparison: none Findings: There is a 6 mm calcification in the proximal left ureter approxi mately 4 cm below the ureteropelvic junction. This results in mild left hydronephrosis and proximal hydroureter. There is considerable perinephric fat stranding. At least 2 punctate intrarenal calyceal calculi are also demonstrated on the left. At least 2 lower pole calyceal calculi are demonstrated on the right. No right hydronephrosis, hydroureter, or ureteral calculus demonstrated. Lack of IV contrast limits assessment of the renal parenchyma. No gross renal parenchymal mass or cyst is demonstrated. Lack of IV contrast limits assessment of the other solid organs. The liver is diffusely hypoattenuating, consistent with fatty change. It is mildly enlarged. No focal abnormality demonstrated. The spleen is enlarged, measuring 15.6 cm long axis dimension the gallbladder, bile ducts, pancreas, adrenals are all unremarkable. No retroperitoneal or mesenteric mass or adenopathy. No pelvic mass or adenopathy. Uterus demonstrates a calcified small exophytic fibroid. The ovaries are unremarkable. No pelvic mass or adenopathy otherwise. There are a few small colonic diverticula. No evidence of diverticulitis. The appendix is normal. No small bowel distention. No free or loculated intraperitoneal gas or fluid is evident. The distal esophagus, stomach, duodenum are un remarkable. The included lung bases demonstrate minimal posterior dependent atelectatic changes. The bones are unremarkable. Impression: Positive for 6 mm proximal left ureteral calculus. This results in mild left hydronephrosis and proximal hydroureter. Bilateral nonobstructive intrarenal calculi Enlarged fatty liver And splenomegaly Colonic diverticulosis. No evidence of diverticulitis Small calcified exophytic uterine fibroid The CT scanner at [facility] is accredited by the [place] [employer] and the scans are performed using protocols designed to limit radiation exposure to as low as reasonably achievable to attain images of sufficient resolution adequate for diagnostic evaluation. Dictated By: Todd Nuno MD Electronically Signed By:Todd Nuno MD Signed Date/Time05/04/20 [id number] CC: Rubén Brennan MD Last Vital Signs Date Time Temp Pulse Resp B/P (MAP) Pulse Ox O2 Delivery O2 Flow Rate FiO2 05/04/20 09:35 97.9 120 17 167/109 (128) 97 Room Air Disposition: ADMITTED INPATIENT Condition: Stable Rubén Brennan MD May 04, 2020 10:17
[2020-05-04 10:18] LABS: CALCIUM 8.8 MG/DL (8.5-10.1); CREATININE 1.5 MG/DL (0.55-1.30); POTASSIUM 3.2 MMOL/L (3.5-5.1)
[2020-05-04 10:22] LABS: COLOR,URINE YELLOW
[2020-05-04 10:40] LABS: ALBUMIN 3.3 G/DL (3.4-5.0); ALBUMIN/GLOBULIN RATIO 0.9 (1.0-2.7)
[2020-05-04] MEDS ORDERED: Ketorolac 30mg Inj IV ONE (12:00)
[2020-05-04 12:14] VITALS: BP 142/90
[2020-05-04] MEDS ORDERED: Piperacillin/Tazobactam 2.25 GM in D5W 55 ML IV SCH (14:15)
[2020-05-04] MEDS ORDERED: Milk of Magnesia 30ml Ud ORAL PRN (14:15)
[2020-05-04] MEDS ORDERED: Zolpidem 5mg tab ORAL PRN ×2 (14:15→21:15)
[2020-05-04] MEDS: D5 1/2NS 1,000 ML IV SCH (15:16)
[2020-05-04] MEDS: Morphine Sulfate 4mg/ml Inj (IV USE ONLY) IVP PRN ×2 (15:51→21:47)
[2020-05-04 16:00] VITALS: BP 140/92
--- NOTE | 2020-05-04 16:24 | Diagnostic Imaging Report ---
Indication: Left flank pain Technique: Spiral acquisitions obtained through the abdomen and pelvis. No oral or IV contrast utilized, per urinary stone protocol. Multiplanar reconstructions were generated. Total dose length product 945 mGycm. CTDIvol(s) 16 mGy. Dose reduction achieved using automated exposure control Comparison: none Findings: There is a 6 mm calcification in the proximal left ureter approximately 4 cm below the ureteropelvic junction. This results in mild left hydronephrosis and proximal hydroureter. There is considerable perinephric fat stranding. At least 2 punctate intrarenal calyceal calculi are also demonstrated on the left. At least 2 lower pole calyceal calculi are demonstrated on the right. No right hydronephrosis, hydroureter, or ureteral calculus demonstrated. Lack of IV contrast limits assessment of the renal parenchyma. No gross renal parenchymal mass or cyst is demonstrated. Lack of IV contrast limits assessment of the other solid organs. The liver is diffusely hypoattenuating, consistent with fatty change. It is mildly enlarged. No focal abnormality demonstrated. The spleen is enlarged, measuring 15.6 cm long axis dimension the gallbladder, bile ducts, pancreas, adrenals are all unremarkable. No retroperitoneal or mesenteric mass or adenopathy. No pelvic mass or adenopathy. Uterus demonstrates a calcified small exophytic fibroid. The ovaries are unremarkable. No pelvic mass or adenopathy otherwise. There are a few small colonic diverticula. No evidence of diverticulitis. The appendix is normal. No small bowel distention. No free or loculated intraperitoneal gas or fluid is evident. The distal esophagus, stomach, duodenum are unremarkable. The included lung bases demonstrate minimal posterior dependent atelectatic changes. The bones are unremarkable. Impression: Positive for 6 mm proximal left ureteral calculus. This results in mild left hydronephrosis and proximal hydroureter. Bilateral nonobstructive intrarenal calculi Enlarged fatty liver And splenomegaly Colonic diverticulosis. No evidence of diverticulitis Small calcified exophytic uterine fibroid The CT scanner at [facility] is accredited by the [place] [employer] and the scans are performed using protocols designed to limit radiation exposure to as low as reasonably achievable to attain images of sufficient resolution adequate for diagnostic evaluation.
--- NOTE | 2020-05-04 16:45 | Consultation ---
DATE OF CONSULTATION: 05/04/2020 INFECTIOUS DISEASE CONSULT PRIMARY ATTENDING PHYSICIAN: Cuba Carrion M.D. REASON FOR CONSULT: Pyelonephritis. HISTORY OF PRESENT ILLNESS: This is a 44-year-old white female admitted today from home complaining of dysuria for 3 days and left flank pain. The patient had a previous visit to the ER on 05/02/2020 with urinary tract infection and was discharged with p.o. nitrofurantoin. The patient had nausea and vomiting and could not take medication. PAST MEDICAL HISTORY: Hypertension. ALLERGIES: Allergic to Cipro and Bactrim. MEDICATIONS: Zosyn, D5 normal saline, Ambien, Zofran, morphine, Tylenol. SOCIAL HISTORY: Denies alcohol, drug abuse, or smoking. In long-term relationship with someone, has 5 kids. REVIEW OF SYSTEMS: No fever but had chills. Had nausea, vomiting, dysuria, left flank pain, had blood in urine, but is not sure if it is because of her period. PHYSICAL EXAMINATION: VITAL SIGNS: Temperature 98.5, pulse 89, blood pressure is 126/83. GENERAL APPEARANCE: A little bit overweight. No acute distress. HEAD AND NECK: [place] conjunctivae. HEART: Normal rate. LUNGS: Clear. ABDOMEN: Soft, has left CVA tenderness and also left lower quadrant pain. EXTREMITIES: No edema. NEUROLOGIC: Alert, oriented x3. No focal signs. LABORATORY AND DIAGNOSTIC DATA: Sodium 132, potassium 3.2, chloride 97, bicarb 25, BUN 23, creatinine 1.5, glucose is 142. Lipase is 52. COVID test was negative. UA showed wbc's of 5-10, rbc's of 30-40, blood 5+. IMPRESSION: 1. Pyelonephritis. 2. Acute renal failure with elevation of BUN and creatinine. 3. Hypertension. 4. Uterine fibroids seen on pelvic ultrasound done 2 days ago. RECOMMENDATION: Continue Zosyn. Follow up the cultures. At the end of my exam, I thank Dr. Cuba Carrion for involving me in the care of this patient. Teja Carrion M.D. DR: /W[place] JOB#: [id number] CC: MEMO
[2020-05-04 20:00] VITALS: BP 165/106
[2020-05-04] MEDS: Zoysn 3.37gm in NS 100ML IVPB SCH (21:39)
[2020-05-04] MEDS: Zolpidem 5mg tab ORAL PRN (21:47)
[2020-05-05] VITALS (8 sets, daily range): BP systolic 141–173; BP diastolic 99–114
[2020-05-05] MEDS: D5 1/2NS 1,000 ML IV SCH ×3 (01:15→11:41)
[2020-05-05] MEDS: Zoysn 3.37gm in NS 100ML IVPB SCH ×3 (06:12→21:14)
[2020-05-05] MEDS: Morphine Sulfate 4mg/ml Inj (IV USE ONLY) IVP PRN ×5 (07:45→22:26)
[2020-05-05] MEDS ORDERED: NS Irrig 1000ml ONE ×2 (08:00)
[2020-05-05] MEDS ORDERED: Sterile Water Irrig 1000ml IRRIG ONE (08:00)
[2020-05-05] MEDS ORDERED: LR 1000ml ONE (08:00)
--- NOTE | 2020-05-05 11:20 | History & Physical ---
History and Physical History & Physicial HP dictated # [id number] Cuba Carrion MD May 05, 2020 11:20
--- NOTE | 2020-05-05 12:30 | History and Physical Report ---
DATE OF ADMISSION: 05/04/2020 CHIEF COMPLAINT: Left flank pain radiating into abdomen. Also reported fevers and chills. HISTORY OF PRESENT ILLNESS: This is a 44-year-old female who lives at home. She woke up around 3 a.m. three days before presenting to the emergency room and she had left flank pain going to her what she describes ovaries. She had also nausea and vomiting. She was seen in the emergency room and was given some [place] as well as Macrobid and Flomax. However, she said she could not take anything by mouth. She was kept vomiting and she came back and she was admitted with diagnosis of pyelonephritis. PAST MEDICAL HISTORY: Unremarkable. ALLERGIES: Cipro and Bactrim, but she does not have any allergy per se, the side effects, and vomiting. SOCIAL HISTORY: The patient lives with and five kids. No history of smoking or alcohol abuse. REVIEW OF SYSTEMS: As above. PHYSICAL EXAMINATION: GENERAL: The patient is a 44-year-old female, in no acute distress. VITAL SIGNS: Blood pressure is 156/107, pulse 96, temperature 96.6, respirations 18. HEENT: [place] conjunctivae. Anicteric sclerae. NECK: Supple. LUNGS: Clear to auscultation. HEART: S1, S2 without murmurs or rubs. ABDOMEN: Soft. There is bilateral CVA tenderness, more on the left. EXTREMITIES: No cyanosis or edema. LABORATORY FINDINGS: The CBC shows WBC of 8800, hematocrit is 37.2, hemoglobin 12.3, platelets 109,000. Chemistry panel shows serum sodium 132, potassium 3.2, chloride 97, BUN 23, creatinine 1.5. Lipase is 52. UA shows 30 to 40 rbc's, 5 to 10 wbc's per high power field. The patient had a CT of the abdomen and pelvis and there was a 6 mm proximal left ureteral calculus, mild left hydronephrosis, and proximal hydroureter. There is bilateral nonobstructive intrarenal calculi as well. ASSESSMENT: This is a 44-year-old female, who is admitted with nausea, vomiting, and CVA tenderness, especially on the left side. She has nephrolithiasis. She has ureteral stone with some obstruction on the left and pyelonephritis. The patient has also hypertension. She said her blood pressure has been on and off up, but she was not taking any medication before. She has hypokalemia probably from volume contraction. PLAN: The patient will be on IV fluid, liquid diet, pain medication, and antibiotics. ID consultation as well as urology consultation will be obtained. Potassium will be repleted. Case was discussed extensively with the patient. Also, I talked to the RN. Labs will be followed and further adjustment will be made in the patient's regimen. Cuba Carrion M.D. DR: ESTIVEN JOB#: [id number] CC:
[2020-05-05] MEDS: Ketorolac 30mg Inj IV SCH ×2 (16:00→21:14)
--- NOTE | 2020-05-05 17:00 | Consultation ---
DATE OF CONSULTATION: 05/05/2020 NOTE: INCOMPLETE DICTATION UROLOGY CONSULTATION CONSULTING PHYSICIAN: Todd Ray MD. ATTENDING//REFERRING PHYSICIAN: Cuba Carrion MD. CHIEF COMPLAINT/HISTORY OF PRESENT ILLNESS: I was asked by Dr. Carrion, to evaluate this 44-year-old female regarding history of left proximal ureteral stone with hydronephrosis and colic secondary to same. Briefly, the patient is in the hospital with three days history of left-sided abdominal flank pain. She also had nausea and vomiting. Workup for the same revealed a 6 mm stone in the left proximal ureter. As such, I was asked to evaluate the patient. PAST MEDICAL HISTORY: Essentially otherwise unremarkable. PAST SURGICAL HISTORY: None. MEDICATIONS: Please see the chart for current medications administration details. Briefly, the patient is on Zosyn for antibiotic coverage. ALLERGIES: Include Cipro and Bactrim. SOCIAL HISTORY: Unremarkable for tobacco, alcohol or drug use. The patient lives at home with her and children. FAMILY HISTORY: Noncontributory. REVIEW OF SYSTEMS: A 14-system review of systems was unremarkable outside what is described above. PHYSICAL EXAMINATION: GENERAL: The patient is a middle-aged female, awake, alert, and oriented x4, very pleasant, in no obvious distress. HEENT: NC/AT. EOMI. Oropharynx clear. NECK: Supple. Full range of motion. CHEST: Within normal limits. ABDOMEN: Soft, nontender, and nondistended. EXTREMITIES: Warm and well perfused. No cyanosis, clubbing or edema. BACK: Left CVA tenderness to percussion. NEUROLOGIC: Grossly nonfocal. LABORATORY DATA: White blood cell count 8.8, hematocrit 37.2, platelets 109. Sodium 132, potassium 3.2. Todd Ray M.D. DR: PUNEET JOB#: [id number] CC:
--- NOTE | 2020-05-05 20:00 | Consultation ---
DATE OF CONSULTATION: 05/05/2020 UROLOGY CONSULTATION ATTENDING PHYSICIAN: Cuba Carrion M.D. REFERRING PHYSICIAN: Cuba Carrion M.D. CHIEF COMPLAINT/HISTORY OF PRESENT ILLNESS: I was asked by Dr. Carrion to evaluate this very pleasant 44-year-old female regarding history of a 6 mm left proximal ureteral stone. Briefly, the patient presented to the hospital with history of 3 days of nausea and vomiting associated with left abdominal and flank pain. Workup revealed the stone described above. She has no history of previous kidney stones. Given her discomfort, she was admitted and I was asked to evaluate the patient. PAST MEDICAL HISTORY: Otherwise unremarkable. PAST SURGICAL HISTORY: None. MEDICATIONS: Please see the chart for current medications administration details. Briefly, the patient is receiving Zosyn for antibiotic coverage. ALLERGIES: Cipro and Bactrim. SOCIAL HISTORY: Unremarkable for tobacco, alcohol, or drug use. FAMILY HISTORY: Noncontributory. REVIEW OF SYSTEMS: A 14-system review of systems is unremarkable outside what is described above. PHYSICAL EXAMINATION: GENERAL: The patient is a middle-aged female, awake, alert, and oriented x4, pleasant, no obvious distress. HEENT: NC/AT. EOMI. Oropharynx clear. NECK: Supple. Full range of motion. CHEST: Within normal limits. ABDOMEN: Soft, nontender, and nondistended. Somewhat obese. EXTREMITIES: Warm and well perfused. No cyanosis, clubbing, or edema. BACK: Left CVA tenderness to percussion. NEUROLOGIC: Grossly nonfocal. LABORATORY DATA: Sodium 132, potassium 3.2, chloride 97, bicarbonate 25, BUN 23, creatinine 1.5, glucose 142, calcium 8.8. LFTs within normal limits. HCG negative. White blood cell count 8.8, hematocrit 37.2, platelets 109. Urinalysis, specific gravity 1.015, pH 5.0, dip test notable for 3+ protein, 4+ ketones, 5+ occult blood, 2+ leukocyte esterase. Microanalysis with 30-40 red and 5-10 white blood cells per high power field and a few bacteria seen. Urine negative. DIAGNOSTIC IMAGING: CT scan of the abdomen and pelvis reveals a 6 mm proximal left ureteral calculus with mild to left hydroureteronephrosis secondary to the same. Other findings as noted. ASSESSMENT AND PLAN: In summary, the patient is a 44-year-old female with a history of a left 6 mm proximal ureteral stone with hydronephrosis and colic secondary to same. Physical exam reveals left CVA tenderness to percussion. Laboratory data is notable for mild anemia and mild renal insufficiency. Diagnostic imaging reveals the stone described above. I discussed these findings today with the patient at bedside. We will plan for left ureteroscopy, laser lithotripsy, double-J stent placement, cystoscopy, and fluoroscopy for treatment of her obstructing stone. The risks, benefits, and alternatives of the procedure were discussed with the patient and informed consent was obtained. She will be kept NPO past midnight for the same. We will plan on proceeding tomorrow to the OR. We will continue her on Zosyn for antibiotic coverage. Thank you for allowing me to participate in the care of this nice lady. Please do not hesitate to contact me for any questions that you may further have regarding her care. I will see her with you as needed. Todd Ray M.D. DR: ARIADNA JOB#: [id number] CC:
[2020-05-06] VITALS (13 sets, daily range): BP systolic 132–188; BP diastolic 70–111
[2020-05-06] MEDS: Morphine Sulfate 4mg/ml Inj (IV USE ONLY) IVP PRN (02:53)
[2020-05-06] MEDS: D5 1/2NS 1,000 ML IV SCH ×3 (02:53→20:29)
[2020-05-06] MEDS: Ketorolac 30mg Inj IV SCH ×4 (05:00→23:22)
[2020-05-06] MEDS: Zoysn 3.37gm in NS 100ML IVPB SCH ×3 (05:01→21:37)
[2020-05-06] MEDS ORDERED: Iothalamate Meglumine 60% 50ML INJ ONE (07:12)
[2020-05-06] MEDS ORDERED: fentaNYL 100 mcg/2 mL IV ONE (07:41)
[2020-05-06] MEDS ORDERED: Midazolam 2mg/2ml Inj ONE (07:41)
[2020-05-06] MEDS ORDERED: Rocuronium Bromide 50mg/5ml Inj IV ONE (07:47)
--- NOTE | 2020-05-06 08:10 | Pre-Procedure Note/Attestation ---
Pre-Procedure Note/Attestation Complete Prior to Procedure Planned Procedure: left Procedure Narrative: left ureteroscopy, laser lithotripsy, possible JJ stent placement, cystoscopy and fluoroscopy Indications for Procedure Pre-Operative Diagnosis: Left ureteral stone/ hydro/ colic Attestation I attest that I discussed the nature of the procedure; its benefits; risks and complications; and alternatives (and the risks and benefits of such alternatives), prior to the procedure, with the patient (or the patient's legal retention representative). I attest that, if there was a reasonable possibility of needing a blood transfusion, the patient (or the patient's legal retention representative) was given the [place] Department [employer] standardized written summary, pursuant to the Keyshawn Gary Blood Safety Act ([place] Health and Safety Code # 1645, as amended). I attest that I re-evaluated the patient just prior to the surgery and that there has been no change in the patient's H&P, except as documented below: Todd Ray M.D. May 06, 2020 08:10
[2020-05-06] MEDS ORDERED: Metoclopramide 10mg/2ml Inj ONE (08:27)
[2020-05-06] MEDS ORDERED: Lidocaine 1% MPF 10mg/ml 5ml ONE (08:27)
[2020-05-06] MEDS ORDERED: Albuterol 90mcg Inhaler 8gm INH ONE (08:42)
--- NOTE | 2020-05-06 09:09 | Immediate Post-Op Evaluation ---
Immediate Post-Op Evalulation Immediate Post-Op Evalulation Procedure: Ureteral scope Date of Evaluation: May 06, 2020 Time of Evaluation: 09:00 IV Fluids: 100 Blood Pressure Systolic: 140 Blood Pressure Diastolic: 97 Pulse Rate: 100 Respiratory Rate: 14 O2 Sat by Pulse Oximetry: 95 Temperature (Fahrenheit): 97.5 Nausea: No Vomiting: No Complications none; Patient Status: awake, patent Hydration Status: adequate Drug: none Cindy Thomason CRNA May 06, 2020 09:09
[2020-05-06] MEDS ORDERED: Tubing IV Secondary IV ONE (09:12)
[2020-05-06] MEDS ORDERED: NS 500ML ONE (09:12)
[2020-05-06] MEDS ORDERED: D5 1/2NS 1000ml IV ONE (09:12)
--- NOTE | 2020-05-06 09:12 | Anethesia Preoperative Eval ---
Anesthesia Pre-op PMH/ROS General Date of Evaluation: May 06, 2020 Time of Evaluation: 07:50 Anesthesiologist: jordan ASA Score: ASA 3 Mallampati Score Class I : Soft palate, uvula, fauces, pillars visible Class II: Soft palate, uvula, fauces visible Class III: Soft palate, base of uvula visible Class IV: Only hard plate visible Mallampati Classification: Class II Surgeon: Latisha Diagnosis: pyelonephritis Surgical Procedure: Ureteral stone Anesthesia History: none Family History: no anesthesia problems Allergies: Coded Allergies: CIPROFLOXACIN (Verified Allergy, Mild, Itching, 10/15/17) nausea SULFAMETHOXAZOLE (Verified Allergy, Mild, 10/15/17) nausea TRIMETHOPRIM (Verified Allergy, Mild, 10/15/17) nausea Medications: see eMAR Patient NPO?: Yes NPO Date: May 06, 2020 NPO Time: 00:01 Past Medical History Cardiovascular: Reports: HTN Pulmonary: Reports: asthma; Denies: COPD, WILLIAM, other Gastrointestinal/Genitourinary: Denies: GERD, CRI, ESRD, other Neurologic/Psychiatric: Denies: dementia, CVA, depression/anxiety, TIA, other Endocrine: Denies: DM, hypothyroidism, steroids, other HEENT: Denies: cataract (L), cataract (R), glaucoma, HOONAH (L), HOONAH (R), other Hematology/Immune: Reports: anemia; Denies: DVT, bleeding disorder, other Musculoskeletal/Integumentary: Denies: OA, RA, DJD, DDD, edema, other Other: obesity PMH Narrative: c/o nausea Anesthesia Pre-op Phys. Exam Physician Exam Last Vital Signs Date Time Temp Pulse Resp B/P (MAP) Pulse Ox O2 Delivery O2 Flow Rate FiO2 05/06/20 05:30 96.8 05/06/20 04:00 69 18 132/70 (90) 95 05/05/20 21:00 Room Air 05/04/20 09:55 98 Constitutional: NAD Neurologic: CN 2-12 intact Cardiovascular: RRR Gastrointestinal: S/NT/ND Airway Exam Mallampati Classification 3 Mallampati Score: Class II MO: full ROM: full Anesthesia Pre-op A/P Studies Pre-op Studies: EKG - SR Risk Assessment & Plan Assessment: covid neg Plan: general RSI- nausea Status Change Before Surgery: No Pre-Antibiotics Drug: none Cindy Thomason CRNA May 06, 2020 09:12
[2020-05-06] MEDS ORDERED: Hydromorphone 0.5mg/0.5ml inj IVP PRN (09:15)
[2020-05-06] MEDS ORDERED: Albuterol/Ipratropium 3ml neb HHN ONE (09:15)
[2020-05-06] MEDS ORDERED: fentaNYL 100 mcg/2 mL IV PRN (09:15)
[2020-05-06] MEDS ORDERED: DiphenhydrAMINE 50mg/ml Inj IVP PRN (09:15)
[2020-05-06] MEDS ORDERED: Labetalol 5mg/ml 20ml vial IV PRN (09:15)
[2020-05-06] MEDS ORDERED: Meperidine 25mg/1ml Inj (FOR RIGORS ONLY) ONE (09:19)
[2020-05-06] MEDS ORDERED: Meperidine 25mg/0.5ml Inj (FOR RIGORS ONLY) IV PRN (09:30)
[2020-05-06] MEDS ORDERED: Labetalol 5mg/ml 20ml vial IV ONE (09:44)
--- NOTE | 2020-05-06 09:44 | Procedure Note ---
DATE OF PROCEDURE: 05/06/2020 PREOPERATIVE DIAGNOSIS: Left ureteral stone with hydronephrosis and colic secondary to same. POSTOPERATIVE DIAGNOSIS: Left ureteral stone with hydronephrosis and colic secondary to same. PROCEDURE PERFORMED: Left ureteroscopy and fluoroscopy. SURGEON: Todd Ray M.D. ANESTHESIA: General/LMA. ESTIMATED BLOOD LOSS: None. IV FLUIDS: IV crystalloid only. DRAINS, TUBES, AND CATHETERS: None. COMPLICATIONS: None. OPERATIVE INDICATION: The patient is a 44-year-old female with history of a left 6 mm proximal ureteral stone. She presented to the hospital with colic secondary to same. She was scheduled for the above-mentioned procedure at [facility] on May 06, 2020. OPERATIVE NOTE IN DETAIL: The patient was brought to the operating room and placed on the table in the supine position. General anesthesia was introduced. Once the patient had LMA in place, she was repositioned in dorsal lithotomy, draped and prepped in the usual sterile fashion. Suitable laser for lithotripsy was not available unfortunately. Using a semi rigid ureteroscope, the patient's urethral meatus calibrated and the scope was passed into the urethra and bladder within normal limits and both ureteral orifices were identified. Attention was turned to the left ureteral orifice into which a 0.035 Glidewire was cannulated and used to pass the scope into the ureter without much difficulty. The scope was advanced up into the proximal ureter where the stone was encountered. As noted above, there was no available laser but an attempt was made to decompress the ureter by dislodging the stone from where it was impacted, this was successful and stone was dropped back into the lower pole of the kidney. After that, I could advance the scope into the proximal ureter and UPJ and renal pelvis. No further evidence of obstruction or abnormality. Descending ureteroscopy confirmed the same that there was no further evidence of obstruction as ureteroscopy had been atraumatic decision was made not to leave a stent. The ureteroscope was removed and the patient was taken out of dorsal lithotomy and placed back in supine position. She was cleaned, dried, and dressed. She was awakened and extubated and transferred to recovery in stable condition. I was present and scrubbed for the entire duration of this case. All needle, sponge, and instrument counts were reported as correct. Todd Ray M.D. DR: Rj JOB#: [id number] CC:
--- NOTE | 2020-05-06 10:01 | 48 Hour Post Anesthesia Eval ---
Post Anesthesia Evaluation Procedure: Ureteral scope Date of Evaluation: May 06, 2020 Time of Evaluation: 09:58 Blood Pressure Systolic: 169 0: 100 Pulse Rate: 90 Respiratory Rate: 14 Temperature (Fahrenheit): 98.3 O2 Sat by Pulse Oximetry: 99 Airway: patent Nausea: No Vomiting: No Hydration Status: adequate Cardiopulmonary Status: stable Mental Status/LOC: patient returned to baseline Follow-up Care/Observations: labetalol given IV 15mg for BP 200s/100 -- 169/100 Hr 89 Post-Anesthesia Complications: none Cindy Thomason CRNA May 06, 2020 10:01
--- NOTE | 2020-05-06 10:08 | General Progress Note ---
Subjective Allergies: Coded Allergies: CIPROFLOXACIN (Verified Allergy, Mild, Itching, 10/15/17) nausea SULFAMETHOXAZOLE (Verified Allergy, Mild, 10/15/17) nausea TRIMETHOPRIM (Verified Allergy, Mild, 10/15/17) nausea Subjective pt is postop Objective Last 24 Hour Vital Signs Date Time Temp Pulse Resp B/P (MAP) Pulse Ox O2 Delivery O2 Flow Rate FiO2 05/06/20 10:01 90 14 99 05/06/20 09:55 86 18 177/104 21 Nasal Cannula 3 05/06/20 09:40 86 18 176/111 97 Nasal Cannula 3 05/06/20 09:37 98 200/123 05/06/20 09:25 94 19 180/90 100 Nasal Cannula 3 05/06/20 09:15 95 19 188/90 100 Nasal Cannula 3 05/06/20 09:09 100 14 95 05/06/20 09:05 105 30 178/91 94 Simple Mask 6 05/06/20 09:00 99 30 154/97 94 Simple Mask 6 05/06/20 08:55 97.0 100 30 170/97 94 Simple Mask 6 05/06/20 05:30 96.8 05/06/20 04:00 96.8 69 18 132/70 (90) 95 05/06/20 03:23 98.2 05/06/20 00:00 98.2 75 20 148/77 (100) 97 05/05/20 22:56 98.2 05/05/20 21:44 98.2 05/05/20 21:00 Room Air 05/05/20 21:00 169/106 05/05/20 20:00 98.2 86 23 169/106 (127) 95 05/05/20 16:00 98.1 85 18 151/104 (120) 95 05/05/20 13:07 173/105 05/05/20 12:55 97.0 93 173/105 (127) 05/05/20 12:00 95 20 173/114 (133) 95 Intake and Output 05/05/20 05/06/20 19:00 07:00 Intake Total 992.5 ml 360 ml Balance 992.5 ml 360 ml Intake IV Total 992.5 ml Other 360 ml # Voids 3 2 Height (Feet): 5 Height (Inches): 6.00 Weight (Pounds): 235 Cardiovascular: normal rate Respiratory/Chest: lungs clear Assessment/Plan Problem List: (1) Ureteral stone with hydronephrosis ICD Codes: N13.2 - Hydronephrosis with renal and ureteral calculous obstruction SNOMED: 302186478 (2) Pyelonephritis ICD Codes: N12 - Tubulo-interstitial nephritis, not specified as acute or chronic SNOMED: 48617442 (3) UTI (urinary tract infection) ICD Codes: N39.0 - Urinary tract infection, site not specified SNOMED: 24266878 (4) HTN (hypertension) ICD Codes: I10 - Essential (primary) hypertension SNOMED: 27460305 [place] I: abxs follow labs start amlodipine Discussed with Cuba Maldonado MD May 06, 2020 10:08
--- NOTE | 2020-05-06 13:47 | Infectious Diseases Prog Note ---
Assessment/Plan Assessment/Plan IMPRESSION: 1. Pyelonephritis. 2. Acute renal failure with elevation of BUN and creatinine. 3. Hypertension. 4. Uterine fibroids 5. Left ureteral stone 6. Left kidney hydronephrosis 7. fatty liver 8. Splenomegaly RECOMMENDATION: Continue Zosyn. Will f/u cultures Subjective ROS Limited/Unobtainable: No Constitutional: Denies: fever Gastrointestinal/Abdominal: Reports: nausea; Denies: vomiting Genitourinary: Reports: other - left flank pain Allergies: Coded Allergies: CIPROFLOXACIN (Verified Allergy, Mild, Itching, 10/15/17) nausea SULFAMETHOXAZOLE (Verified Allergy, Mild, 10/15/17) nausea TRIMETHOPRIM (Verified Allergy, Mild, 10/15/17) nausea Objective Last 24 Hour Vital Signs Date Time Temp Pulse Resp B/P (MAP) Pulse Ox O2 Delivery O2 Flow Rate FiO2 05/06/20 12:40 97.3 05/06/20 12:10 105 150/94 05/06/20 12:00 97.3 105 20 150/94 (112) 96 05/06/20 10:05 98.0 90 22 169/106 98 Nasal Cannula 3 05/06/20 10:01 90 14 99 05/06/20 10:00 98.0 05/06/20 10:00 98.0 05/06/20 09:55 86 18 177/104 97 Nasal Cannula 3 05/06/20 09:40 86 18 176/111 97 Nasal Cannula 3 05/06/20 09:37 98 200/123 05/06/20 09:25 94 19 180/90 100 Nasal Cannula 3 05/06/20 09:15 95 19 188/90 100 Nasal Cannula 3 05/06/20 09:09 100 14 95 05/06/20 09:05 105 30 178/91 94 Simple Mask 6 05/06/20 09:00 99 30 154/97 94 Simple Mask 6 05/06/20 08:55 97.0 100 30 170/97 94 Simple Mask 6 05/06/20 05:30 96.8 05/06/20 04:00 96.8 69 18 132/70 (90) 95 05/06/20 03:23 98.2 05/06/20 00:00 98.2 75 20 148/77 (100) 97 05/05/20 22:56 98.2 05/05/20 21:44 98.2 05/05/20 21:00 Room Air 05/05/20 21:00 169/106 05/05/20 20:00 98.2 86 23 169/106 (127) 95 05/05/20 16:00 98.1 85 18 151/104 (120) 95 Height (Feet): 5 Height (Inches): 6.00 Weight (Pounds): 235 General Appearance: no acute distress HEENT: mucous membranes moist Respiratory/Chest: lungs clear Cardiovascular: normal rate Abdomen: soft, non tender Extremities: no edema Neurologic/Psychiatric: alert, oriented x 3, responsive Microbiology Date/Time Source Procedure Growth Status 05/04/20 10:18 Nasopharynx SARS-CoV-2 RdRp Gene Assay - Final Complete Current Medications Medications (Trade) Dose Ordered Sig/Joann Route PRN Reason Start Time Stop Time Status Last Admin Dose Admin Acetaminophen (Tylenol) 650 mg Q4H PRN ORAL Mild Pain (Pain Scale 1-3) 05/04/20 14:15 06/03/20 14:14 Amlodipine Besylate (Norvasc) 5 mg DAILY ORAL 05/06/20 11:00 06/05/20 10:59 05/06/20 12:10 Clonidine HCl (Catapres Tab) 0.1 mg Q4H PRN ORAL HYPERTENSION 05/04/20 21:15 08/02/20 21:14 05/05/20 21:00 Dextrose (Dextrose 50%) 25 ml Q30M PRN IV Hypoglycemia 05/04/20 14:15 08/02/20 14:14 Dextrose (Dextrose 50%) 50 ml Q30M PRN IV Hypoglycemia 05/04/20 14:15 08/02/20 14:14 Dextrose/Sodium Chloride 1,000 ml @ 100 mls/hr Q10H IV 05/04/20 15:15 06/03/20 15:14 05/06/20 02:53 Ketorolac Tromethamine (Toradol 30mg) 30 mg Q6H IV 05/05/20 16:00 05/10/20 15:59 05/06/20 12:10 Magnesium Hydroxide (Mom) 30 ml HSPRN PRN ORAL Constipation 05/04/20 14:15 06/03/20 14:14 Morphine Sulfate (Morphine Sulfate) 2 mg Q3H PRN IVP Moderate Pain (Pain Scale 4-6) 05/04/20 14:15 05/11/20 14:14 Morphine Sulfate (Morphine Sulfate) 4 mg Q3H PRN IVP Severe Pain (Pain Scale 7-10) 05/04/20 14:15 05/11/20 14:14 05/06/20 02:53 Ondansetron HCl (Zofran) 4 mg Q4H PRN IVP Nausea & Vomiting 05/04/20 21:30 06/03/20 21:29 05/06/20 12:10 Piperacillin Sod/ Tazobactam Sod 3.375 gm/Sodium Chloride 110 ml @ 27.5 mls/hr EVERY 8 HOURS IVPB 05/04/20 22:00 05/09/20 21:59 05/06/20 05:01 Zolpidem Tartrate (Ambien) 5 mg HSPRN PRN ORAL Insomnia 05/04/20 21:25 05/11/20 21:24 05/04/20 21:47 Teja Carrion MD May 06, 2020 13:47
[2020-05-06] MEDS: Zolpidem 5mg tab ORAL PRN (21:37)
[2020-05-06] MEDS: Morphine Sulfate 2mg/ml Inj(IV/IM USE ONLY) IVP PRN (21:37)
[2020-05-07] VITALS: BP 141/90
[2020-05-07 04:00] VITALS: BP 158/100
[2020-05-07] MEDS: Ketorolac 30mg Inj IV SCH ×4 (04:39→21:14)
[2020-05-07] MEDS: Zoysn 3.37gm in NS 100ML IVPB SCH ×3 (05:36→21:13)
[2020-05-07] MEDS: Morphine Sulfate 4mg/ml Inj (IV USE ONLY) IVP PRN ×3 (05:36→18:40)
[2020-05-07 06:38] LABS: HEMATOCRIT 31.5 % (37.0-47.0); HEMOGLOBIN 10.3 G/DL (12.0-16.0); MEAN CORPUSCULAR VOLUME 74 FL (80-99); PLATELET COUNT 87 K/UL (150-450); RED BLOOD COUNT 4.26 M/UL (4.20-5.40); RED CELL DISTRIBUTION WIDTH 14.4 % (11.6-14.8); WHITE BLOOD COUNT 6.3 K/UL (4.8-10.8)
[2020-05-07 06:55] LABS: CALCIUM 7.8 MG/DL (8.5-10.1); CREATININE 1.2 MG/DL (0.55-1.30); POTASSIUM 3.2 MMOL/L (3.5-5.1)
[2020-05-07 08:00] VITALS: BP 146/98
[2020-05-07 12:00] VITALS: BP 151/102
--- NOTE | 2020-05-07 12:53 | General Progress Note ---
Subjective Allergies: Coded Allergies: CIPROFLOXACIN (Verified Allergy, Mild, Itching, 10/15/17) nausea SULFAMETHOXAZOLE (Verified Allergy, Mild, 10/15/17) nausea TRIMETHOPRIM (Verified Allergy, Mild, 10/15/17) nausea Subjective C/O back pain Objective Last 24 Hour Vital Signs Date Time Temp Pulse Resp B/P (MAP) Pulse Ox O2 Delivery O2 Flow Rate FiO2 05/07/20 12:00 97.7 74 18 151/102 (118) 94 05/07/20 10:05 99.1 05/07/20 09:13 99.1 05/07/20 09:00 Room Air 05/07/20 08:42 79 146/98 05/07/20 08:00 99.1 79 18 146/98 (114) 96 05/07/20 06:06 97.7 05/07/20 05:09 97.7 05/07/20 04:39 158/100 05/07/20 04:00 97.7 84 20 158/100 (119) 94 05/07/20 00:00 98.2 81 20 141/90 (107) 97 05/06/20 23:52 98.1 05/06/20 22:07 98.1 05/06/20 21:37 151/97 05/06/20 21:00 Room Air 05/06/20 20:00 98.1 81 20 151/97 (115) 96 05/06/20 18:15 97.3 05/06/20 16:00 97.3 89 18 132/89 (103) 96 Intake and Output 05/06/20 05/07/20 19:00 07:00 Intake Total 1525.0 ml 600 ml Balance 1525.0 ml 600 ml IV Total 865.0 ml Other 660 ml 600 ml # Voids 5 2 # Bowel Movements 3 Laboratory Tests 05/07/20 05:25: White Blood Count 6.3, Red Blood Count 4.26, Hemoglobin 10.3L, Hematocrit 31.5L, Mean Corpuscular Volume 74L, Mean Corpuscular Hemoglobin 24.1L, Mean Corpuscular Hemoglobin Concent 32.6, Red Cell Distribution Width 14.4, Platelet Count 87L, Mean Platelet Volume 7.8, Neutrophils (%) (Auto) , Lymphocytes (%) (Auto) , Monocytes (%) (Auto) , Eosinophils (%) (Auto) , Basophils (%) (Auto) , Differential Total Cells Counted 100, Neutrophils % (Manual) 75, Lymphocytes % (Manual) 13L, Monocytes % (Manual) 11H, Eosinophils % (Manual) 1, Basophils % (Manual) 0, Band Neutrophils 0, Platelet Estimate DecreasedL, Platelet Morphology Normal, Hypochromasia 1+, Microcytosis 1+, Sodium Level 134L, Potassium Level 3.2L, Chloride Level 102, Carbon Dioxide Level 25, Anion Gap 7, Blood Urea Nitrogen 11, Creatinine 1.2, Estimat Glomerular Filtration Rate 49.3, Glucose Level 143H, Calcium Level 7.8L Height (Feet): 5 Height (Inches): 6.00 Weight (Pounds): 235 Cardiovascular: normal rate Respiratory/Chest: lungs clear Assessment/Plan Problem List: (1) Ureteral stone with hydronephrosis ICD Codes: N13.2 - Hydronephrosis with renal and ureteral calculous obstruction SNOMED: 878621862 (2) Pyelonephritis ICD Codes: N12 - Tubulo-interstitial nephritis, not specified as acute or chronic SNOMED: 93913810 (3) UTI (urinary tract infection) ICD Codes: N39.0 - Urinary tract infection, site not specified SNOMED: 74316217 (4) HTN (hypertension) ICD Codes: I10 - Essential (primary) hypertension SNOMED: 62478218 Assessment/Plan: abxs pain meds Discussed with ID and Urology and RN follow labs Cuba Carrion MD May 07, 2020 12:53
[2020-05-07] MEDS: D5 1/2NS 1,000 ML IV SCH ×2 (13:15→17:40)
--- NOTE | 2020-05-07 13:19 | Infectious Diseases Prog Note ---
Assessment/Plan Assessment/Plan IMPRESSION: 1. Pyelonephritis. 2. Acute renal failure with elevation of BUN and creatinine. 3. Hypertension. 4. Uterine fibroids 5. Left ureteral stone 6. Left kidney hydronephrosis 7. fatty liver 8. Splenomegaly RECOMMENDATION: Continue Zosyn. Will f/u cultures Case was D/W primary mD & patient Subjective ROS Limited/Unobtainable: No Constitutional: Reports: anorexia Respiratory: Reports: no symptoms Cardiovascular: Reports: no symptoms Gastrointestinal/Abdominal: Reports: nausea, other - left flank pain Allergies: Coded Allergies: CIPROFLOXACIN (Verified Allergy, Mild, Itching, 10/15/17) nausea SULFAMETHOXAZOLE (Verified Allergy, Mild, 10/15/17) nausea TRIMETHOPRIM (Verified Allergy, Mild, 10/15/17) nausea Objective Last 24 Hour Vital Signs Date Time Temp Pulse Resp B/P (MAP) Pulse Ox O2 Delivery O2 Flow Rate FiO2 05/07/20 12:46 97.7 05/07/20 12:00 97.7 74 18 151/102 (118) 94 05/07/20 10:05 99.1 05/07/20 09:13 99.1 05/07/20 09:00 Room Air 05/07/20 08:42 79 146/98 05/07/20 08:00 99.1 79 18 146/98 (114) 96 05/07/20 06:06 97.7 05/07/20 05:09 97.7 05/07/20 04:39 158/100 05/07/20 04:00 97.7 84 20 158/100 (119) 94 05/07/20 00:00 98.2 81 20 141/90 (107) 97 05/06/20 23:52 98.1 05/06/20 22:07 98.1 05/06/20 21:37 151/97 05/06/20 21:00 Room Air 05/06/20 20:00 98.1 81 20 151/97 (115) 96 05/06/20 18:15 97.3 05/06/20 16:00 97.3 89 18 132/89 (103) 96 Height (Feet): 5 Height (Inches): 6.00 Weight (Pounds): 235 General Appearance: no acute distress HEENT: mucous membranes moist Respiratory/Chest: lungs clear Cardiovascular: normal rate Abdomen: soft, non tender Neurologic/Psychiatric: alert, oriented x 3, responsive Microbiology Date/Time Source Procedure Growth Status 05/06/20 18:55 Stool Clostridium difficile Toxin Assay - Final Complete Laboratory Tests Test 05/07/20 05:25 White Blood Count 6.3 K/UL (4.8-10.8) Red Blood Count 4.26 M/UL (4.20-5.40) Hemoglobin 10.3 G/DL (12.0-16.0) L Hematocrit 31.5 % (37.0-47.0) L Mean Corpuscular Volume 74 FL (80-99) L Mean Corpuscular Hemoglobin 24.1 PG (27.0-31.0) L Mean Corpuscular Hemoglobin Concent 32.6 G/DL (32.0-36.0) Red Cell Distribution Width 14.4 % (11.6-14.8) Platelet Count 87 K/UL (150-450) L Mean Platelet Volume 7.8 FL (6.5-10.1) Neutrophils (%) (Auto) % (45.0-75.0) Lymphocytes (%) (Auto) % (20.0-45.0) Monocytes (%) (Auto) % (1.0-10.0) Eosinophils (%) (Auto) % (0.0-3.0) Basophils (%) (Auto) % (0.0-2.0) Differential Total Cells Counted 100 Neutrophils % (Manual) 75 % (45-75) Lymphocytes % (Manual) 13 % (20-45) L Monocytes % (Manual) 11 % (1-10) H Eosinophils % (Manual) 1 % (0-3) Basophils % (Manual) 0 % (0-2) Band Neutrophils 0 % (0-8) Platelet Estimate Decreased L Platelet Morphology Normal Hypochromasia 1+ Microcytosis 1+ Sodium Level 134 MMOL/L (136-145) L Potassium Level 3.2 MMOL/L (3.5-5.1) L Chloride Level 102 MMOL/L (98-107) Carbon Dioxide Level 25 MMOL/L (21-32) Anion Gap 7 mmol/L (5-15) Blood Urea Nitrogen 11 mg/dL (7-18) Creatinine 1.2 MG/DL (0.55-1.30) Estimat Glomerular Filtration Rate 49.3 mL/min (>60) Glucose Level 143 MG/DL (74-106) H Calcium Level 7.8 MG/DL (8.5-10.1) L Current Medications Medications (Trade) Dose Ordered Sig/Joann Route PRN Reason Start Time Stop Time Status Last Admin Dose Admin Acetaminophen (Tylenol) 650 mg Q4H PRN ORAL Mild Pain (Pain Scale 1-3) 05/04/20 14:15 06/03/20 14:14 05/07/20 12:16 Amlodipine Besylate (Norvasc) 5 mg DAILY ORAL 05/06/20 11:00 06/05/20 10:59 05/07/20 08:42 Clonidine HCl (Catapres Tab) 0.1 mg Q4H PRN ORAL HYPERTENSION 05/04/20 21:15 08/02/20 21:14 05/07/20 04:39 Dextrose (Dextrose 50%) 25 ml Q30M PRN IV Hypoglycemia 05/04/20 14:15 08/02/20 14:14 Dextrose (Dextrose 50%) 50 ml Q30M PRN IV Hypoglycemia 05/04/20 14:15 08/02/20 14:14 Dextrose/Sodium Chloride 1,000 ml @ 100 mls/hr Q10H IV 05/04/20 15:15 06/03/20 15:14 05/06/20 20:29 Ketorolac Tromethamine (Toradol 30mg) 30 mg Q6H IV 05/05/20 16:00 05/10/20 15:59 05/07/20 09:35 Magnesium Hydroxide (Mom) 30 ml HSPRN PRN ORAL Constipation 05/04/20 14:15 06/03/20 14:14 Morphine Sulfate (Morphine Sulfate) 2 mg Q3H PRN IVP Moderate Pain (Pain Scale 4-6) 05/04/20 14:15 05/11/20 14:14 05/06/20 21:37 Morphine Sulfate (Morphine Sulfate) 4 mg Q3H PRN IVP Severe Pain (Pain Scale 7-10) 05/04/20 14:15 05/11/20 14:14 05/07/20 08:43 Ondansetron HCl (Zofran) 4 mg Q4H PRN IVP Nausea & Vomiting 05/04/20 21:30 06/03/20 21:29 05/07/20 09:35 Piperacillin Sod/ Tazobactam Sod 3.375 gm/Sodium Chloride 110 ml @ 27.5 mls/hr EVERY 8 HOURS IVPB 05/04/20 22:00 05/09/20 21:59 05/07/20 05:36 Zolpidem Tartrate (Ambien) 5 mg HSPRN PRN ORAL Insomnia 05/04/20 21:25 05/11/20 21:24 05/06/20 21:37 Teja Carrion MD May 07, 2020 13:19
[2020-05-07] MEDS: Morphine Sulfate 2mg/ml Inj(IV/IM USE ONLY) IVP PRN (13:30)
[2020-05-07 16:00] VITALS: BP 164/107
[2020-05-07] MEDS ORDERED: ALEVE220 MG PO (17:53)
[2020-05-07 20:00] VITALS: BP 163/107
[2020-05-07] MEDS: Zolpidem 5mg tab ORAL PRN (21:44)
[2020-05-08] VITALS: BP 135/110
[2020-05-08 04:00] VITALS: BP 170/110
[2020-05-08] MEDS: Ketorolac 30mg Inj IV SCH ×4 (04:31→21:36)
[2020-05-08] MEDS: Zoysn 3.37gm in NS 100ML IVPB SCH ×3 (05:05→21:18)
[2020-05-08 08:00] VITALS: BP 162/110
[2020-05-08] MEDS: D5 1/2NS 1,000 ML IV SCH ×2 (08:33→19:15)
--- NOTE | 2020-05-08 11:57 | Infectious Diseases Prog Note ---
Assessment/Plan Assessment/Plan IMPRESSION: 1. Pyelonephritis. 2. Acute renal failure with elevation of BUN and creatinine. 3. Hypertension. 4. Uterine fibroids 5. Left ureteral stone 6. Left kidney hydronephrosis 7. fatty liver 8. Splenomegaly RECOMMENDATION: Continue Zosyn. Subjective ROS Limited/Unobtainable: No Constitutional: Reports: anorexia Respiratory: Reports: no symptoms Gastrointestinal/Abdominal: Reports: nausea; Denies: vomiting Genitourinary: Reports: frequency, other - left flank pain Allergies: Coded Allergies: CIPROFLOXACIN (Verified Allergy, Mild, Itching, 10/15/17) nausea SULFAMETHOXAZOLE (Verified Allergy, Mild, 10/15/17) nausea TRIMETHOPRIM (Verified Allergy, Mild, 10/15/17) nausea Objective Last 24 Hour Vital Signs Date Time Temp Pulse Resp B/P (MAP) Pulse Ox O2 Delivery O2 Flow Rate FiO2 05/08/20 09:30 Room Air 05/08/20 08:32 75 160/106 05/08/20 08:00 97.0 75 21 162/110 (127) 97 05/08/20 04:31 170/110 05/08/20 04:00 96.5 88 20 170/110 (130) 94 05/08/20 00:00 97.7 82 18 135/110 (118) 95 05/07/20 21:45 163/107 05/07/20 21:00 Room Air 05/07/20 20:00 98.4 81 20 163/107 (125) 95 05/07/20 19:10 97.7 05/07/20 17:06 97.7 05/07/20 16:35 164/107 05/07/20 16:00 97.7 77 18 164/107 (126) 97 05/07/20 14:00 97.7 05/07/20 12:46 97.7 05/07/20 12:00 97.7 74 18 151/102 (118) 94 Height (Feet): 5 Height (Inches): 6.00 Weight (Pounds): 235 HEENT: mucous membranes moist Respiratory/Chest: lungs clear Cardiovascular: normal rate Abdomen: soft, non tender Extremities: no edema Neurologic/Psychiatric: alert, oriented x 3, responsive Microbiology Date/Time Source Procedure Growth Status 05/06/20 18:55 Stool Clostridium difficile Toxin Assay - Final Complete Laboratory Tests Test 05/08/20 05:34 POC Whole Blood Glucose 130 MG/DL (74-106) H Current Medications Medications (Trade) Dose Ordered Sig/Joann Route PRN Reason Start Time Stop Time Status Last Admin Dose Admin Acetaminophen (Tylenol) 650 mg Q4H PRN ORAL Mild Pain (Pain Scale 1-3) 05/04/20 14:15 06/03/20 14:14 05/07/20 12:16 Amlodipine Besylate (Norvasc) 5 mg DAILY ORAL 05/06/20 11:00 06/05/20 10:59 05/08/20 08:32 Clonidine HCl (Catapres Tab) 0.1 mg Q4H PRN ORAL HYPERTENSION 05/04/20 21:15 08/02/20 21:14 05/08/20 04:31 Dextrose (Dextrose 50%) 25 ml Q30M PRN IV Hypoglycemia 05/04/20 14:15 08/02/20 14:14 Dextrose (Dextrose 50%) 50 ml Q30M PRN IV Hypoglycemia 05/04/20 14:15 08/02/20 14:14 Dextrose/Sodium Chloride 1,000 ml @ 100 mls/hr Q10H IV 05/04/20 15:15 06/03/20 15:14 05/08/20 08:33 Ketorolac Tromethamine (Toradol 30mg) 30 mg Q6H IV 05/05/20 16:00 05/10/20 15:59 05/08/20 11:19 Magnesium Hydroxide (Mom) 30 ml HSPRN PRN ORAL Constipation 05/04/20 14:15 06/03/20 14:14 Morphine Sulfate (Morphine Sulfate) 2 mg Q3H PRN IVP Moderate Pain (Pain Scale 4-6) 05/04/20 14:15 05/11/20 14:14 05/07/20 13:30 Morphine Sulfate (Morphine Sulfate) 4 mg Q3H PRN IVP Severe Pain (Pain Scale 7-10) 05/04/20 14:15 05/11/20 14:14 05/07/20 18:40 Ondansetron HCl (Zofran) 4 mg Q4H PRN IVP Nausea & Vomiting 05/04/20 21:30 06/03/20 21:29 05/08/20 08:32 Piperacillin Sod/ Tazobactam Sod 3.375 gm/Sodium Chloride 110 ml @ 27.5 mls/hr EVERY 8 HOURS IVPB 05/04/20 22:00 05/09/20 21:59 05/08/20 05:05 Zolpidem Tartrate (Ambien) 5 mg HSPRN PRN ORAL Insomnia 05/04/20 21:25 05/11/20 21:24 05/07/20 21:44 Teja Carrion MD May 08, 2020 11:57
[2020-05-08 12:00] VITALS: BP 168/113
[2020-05-08] MEDS ORDERED: NORVASC5 MG ORAL (12:15)
--- NOTE | 2020-05-08 12:20 | General Progress Note ---
Subjective Allergies: Coded Allergies: CIPROFLOXACIN (Verified Allergy, Mild, Itching, 10/15/17) nausea SULFAMETHOXAZOLE (Verified Allergy, Mild, 10/15/17) nausea TRIMETHOPRIM (Verified Allergy, Mild, 10/15/17) nausea Subjective C/O back pain Objective Last 24 Hour Vital Signs Date Time Temp Pulse Resp B/P (MAP) Pulse Ox O2 Delivery O2 Flow Rate FiO2 05/08/20 09:30 Room Air 05/08/20 08:32 75 160/106 05/08/20 08:00 97.0 75 21 162/110 (127) 97 05/08/20 04:31 170/110 05/08/20 04:00 96.5 88 20 170/110 (130) 94 05/08/20 00:00 97.7 82 18 135/110 (118) 95 05/07/20 21:45 163/107 05/07/20 21:00 Room Air 05/07/20 20:00 98.4 81 20 163/107 (125) 95 05/07/20 19:10 97.7 05/07/20 17:06 97.7 05/07/20 16:35 164/107 05/07/20 16:00 97.7 77 18 164/107 (126) 97 05/07/20 14:00 97.7 05/07/20 12:46 97.7 Intake and Output 05/07/20 05/08/20 19:00 07:00 Intake Total 1362.5 ml 1480 ml Balance 1362.5 ml 1480 ml Intake Oral 720 ml 480 ml IV Total 642.5 ml 1000 ml # Voids 3 3 Laboratory Tests 05/08/20 05:34: POC Whole Blood Glucose 130H Height (Feet): 5 Height (Inches): 6.00 Weight (Pounds): 235 Cardiovascular: normal rate Respiratory/Chest: lungs clear Assessment/Plan Problem List: (1) Ureteral stone with hydronephrosis ICD Codes: N13.2 - Hydronephrosis with renal and ureteral calculous obstruction SNOMED: 934313986 (2) Pyelonephritis ICD Codes: N12 - Tubulo-interstitial nephritis, not specified as acute or chronic SNOMED: 78693301 (3) UTI (urinary tract infection) ICD Codes: N39.0 - Urinary tract infection, site not specified SNOMED: 67315782 (4) HTN (hypertension) ICD Codes: I10 - Essential (primary) hypertension SNOMED: 12140360 Assessment/Plan: Po Augmentin for 5 days Discussed with ID Dc today [place] Carrion MD May 08, 2020 12:20
[2020-05-08] MEDS: Morphine Sulfate 2mg/ml Inj(IV/IM USE ONLY) IVP PRN ×3 (12:39→22:38)
[2020-05-08 16:00] VITALS: BP 160/106
[2020-05-08 20:00] VITALS: BP 154/100
[2020-05-08] MEDS: Zolpidem 5mg tab ORAL PRN (21:45)
[2020-05-09] VITALS: BP 135/99
[2020-05-09] MEDS: D5 1/2NS 1,000 ML IV SCH (01:15)
[2020-05-09] MEDS: Ketorolac 30mg Inj IV SCH ×2 (03:40→09:36)
[2020-05-09 04:00] VITALS: BP 154/97
[2020-05-09] MEDS: Zoysn 3.37gm in NS 100ML IVPB SCH (05:12)
[2020-05-09] MEDS: Morphine Sulfate 2mg/ml Inj(IV/IM USE ONLY) IVP PRN ×2 (05:41→09:06)
[2020-05-09 08:00] VITALS: BP 170/107
[2020-05-09 08:17] VITALS: BP 170/107
[2020-05-09] MEDS ORDERED: 1/2 NS 1000ml IV ONE (11:55)
[2020-05-09] MEDS ORDERED: D5 1/2NS 1000ml IV ONE (11:55)
[2020-05-09] MEDS ORDERED: Tubing IV Secondary IV ONE (11:55)
--- NOTE | 2020-05-10 09:50 | Discharge Summary ---
Discharge Summary Discharge Summary _ Discharge summary DATE OF ADMISSION: 05/04/2020 DATE OF DISCHARGE: 05/09/2020 DISCHARGED BY: Dr. Cuba Carrion. REASON FOR ADMISSION: 44 years old female with past medical history of hypertension, presented to emergency department with chief complaint of dysuria for 3 days, left flank pain, fever and chills. Upon evaluation patient was tachycardic with heart rate 120, blood pressure was 167/109. Laboratory work-up revealed no leukocytosis, hemoglobin 12.3, hematocrit 27.2 , platelet count 109. Urinalysis revealed +3 protein, +2 leukocyte esterase , pyuria and few bacteria. Urine test was negative. Sodium 132, potassium 3.2, chloride 97. BUN 23, creatinine 1.5. Glucose 142. Stable LFT and lipase. hCG negative. Rapid COVID-[address] scan of the abdomen and pelvis revealed proximal 6 millimeter left ureteral calculus, resulting in mild left hydronephrosis and proximal hydroureter. Bilateral nonobstructive intrarenal calculi. Enlarged fatty liver and splenomegaly. Colonic diverticulosis without evidence of diverticulitis. Patient received fluids, antiemetic , c empiric antibiotic and admitted for fu rther management. CONSULTANTS: ID specialist Dr. Teja Carrion urologist Dr. Ray [facility] COURSE: Patient admitted to medical surgical floor and started on the IV fluids and empiric antibiotics . Pain management was addressed as needed . Potassium was replaced . Urology seen and evaluated patient . Patient subsequently undergone left ureteroscopy and fluoroscopy. Patient tolerated procedure well. Postoperatively pain management was addressed . diet started as liquid and was advanced as tolerated. Stool for C. difficile was checked due to diarrhea , was negative. Antibiotic provided as per ID recommendation. Blood pressure was managed with calcium channel ruth and clonidine was on board as needed for blood pressure spikes. Blood sugar was closely monitored remained stable. Renal parameters and electrolytes were closely monitored, electrolytes further corrected as needed, and nephrotoxic's were avoided. Acute renal failure resolved : prior to discharge BUN from 23 down to 11 , creatinine from 1.5 down to 1.2. Patient clinically stabilized and was ready for discharge home. Patient was discharged on oral antibiotic to complete the course at home. FINAL DIAGNOSES: Nephrolithiasis Left ureteral stone with hydronephrosis and colic Status post left ureteroscopy and fluoroscopy Pyelonephritis Hypertension Hypokalemia Acute renal failure-resolved Fatty liver Splenomegaly DISCHARGE MEDICATIONS See Medication Reconciliation list. Prescription for Augmentin for 5 additional days provided. DISCHARGE INSTRUCTIONS: Patient was discharged home. Follow-up with a primary care provider in 1 week. I have been assigned to dictate discharge summary for this account. I was not involved in the patient's management. Edilia Rain NP May 10, 2020 09:50
== END 2020-05-09 11:56 | disposition home or self-care (01) | DRG 463 ==
LOC: EMR 10:00 → 4E 11:47 → EDBEDREQ 12:28
PROC: 0TJ98ZZ Inspection of Ureter, Via Natural or Artificial Opening Endoscopic (ICD-10-PCS; principal; 2020-05-06 08:00)
DX: N13.6 Pyonephrosis (principal); E87.6 Hypokalemia; N17.9 Acute kidney failure, unspecified; R16.1 Splenomegaly, not elsewhere classified; N39.0 Urinary tract infection, site not specified; Z88.1 Allergy status to other antibiotic agents; K57.90 Diverticulosis of intestine, part unspecified, without perforation or abscess without bleeding; I10 Essential (primary) hypertension; K76.0 Fatty (change of) liver, not elsewhere classified; D25.9 Leiomyoma of uterus, unspecified
CPT/HCPCS: 36415; 74176; 80048; 80053; 81003; 81025; 82962; 83690; 84702; 85007; 85025; 87324; 94003; 94150; 96361; 96365; 96375; 99285; J2180; J2250; J2405; J2765; J7030; J7620; J8499; U0002